=== PATIENT | male | born 1930 | race Caucasian/White ===

== ENCOUNTER 2017-05-10 16:13 | Inpatient (IN) ==
--- NOTE | 2017-05-10 16:51 | Emergency Department Note ---
Lower Extremity Injury HPI - General Chief Complaint: Extremity Injury, Lower Stated Complaint: L leg warmth and swelling Time Seen by Provider: 05/10/17 16:39 Source: patient Mode of arrival: ambulatory - History of Present Illness HPI Narrative: Artie comes in today with history of lower leg swelling that he has had since Thursday. He states the swelling is gradually gotten worse. Does take Coumadin for A. fib he is on long-term anticoagulation. Swelling gradually has gotten worse, he did also have some redness to his left lower leg. No fevers no chest pain, no change in his respiratory rate, he does have chronic A. 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 - Related Data Home Medications Medication Instructions Recorded Confirmed magnesium oxide 400 mg tablet 400 mg PO QDAY tab 02/20/16 05/10/17 multivitamin tablet 1 tab-cap PO QDAY 02/20/16 05/10/17 Custom Shoes 1 each TP DAILY 05/10/17 05/10/17 Previous Rx's Medication Instructions Recorded rosuvastatin 10 mg tablet 10 mg PO .COMPLEX #90 tab 08/14/16 furosemide 40 mg tablet 40 mg PO BID #60 tab 08/26/16 verapamil ER 120 mg 24 hr 120 mg PO QDAY #90 cap 09/16/16 capsule,extended release metolazone 2.5 mg tablet 2.5 mg PO QDAY PRN #90 tab 11/11/16 warfarin 5 mg tablet See Dose Instructions PO QDAY #100 04/23/17 tab Allergies Allergy/AdvReac Type Severity Reaction Status Date / Time Beta Blockers AdvReac Unknown Bradycardia Uncoded 04/30/17 13:05 (Beta-Adrenergic Blocking Agts) Review of Systems All systems ED: reviewed and negative except as stated. Constitutional: Reports: other (Also history of azar wire fence injury to left thigh when he was a child.). Denies: fever, chills ENT ED: Denies: ear pain, throat pain Cardiovascular: Reports: palpitations, dyspnea on exertion. Denies: chest pain Respiratory: Denies: cough Gastrointestinal: Denies: abdominal pain, nausea, vomiting Genitourinary: Denies: urgency, dysuria Psychiatric: Denies: depression Endocrine: Reports: fatigue Hematological/Lymphatic: Denies: easy bleeding Past Medical History - Past Medical History Source: old records reviewed Medical history: Reports: atrial fibrillation, CHF, coronary artery disease, valvular heart disease, other (History of vascular disease) Surgical history ED: Reports: orthopedic, other, vascular surgery Family history: Reports: no significant family history - Social History smoking status: Unknown if ever smoked Alcohol use: Reports: Rarely Physical Exam - General General appearance: alert, in no apparent distress - Head Head exam: atraumatic, normocephalic, normal inspection (saddle nose deformity) - Eye Eye exam: Present: normal appearance, PERRL, EOMI. Absent: conjunctival injection - ENT ENT exam: normal exam, normal oropharynx, mucous membranes moist, TM's normal bilaterally, normal external ear exam - Neck Neck exam: Present: normal inspection, full ROM, trachea midline. Absent: tenderness, meningismus, lymphadenopathy - Chest Chest inspection: Present: normal inspection, symmetric chest wall rise - Respiratory Respiratory exam: Present: normal lung sounds bilaterally - Cardiovascular Cardiovascular exam: Present: irregular rhythm, systolic murmur - Abdominal Exam Abdominal exam: Present: soft, normal bowel sounds. Absent: distention, tenderness, guarding - exam: Present: normal testicular lie. Absent: scrotal swelling - Extremities Exam Extremities exam: Present: normal inspection, full ROM, tenderness, pedal edema , calf tenderness, other (tenderness to the left calf and lef left lower extremity with erythema) - Back Exam Back exam: Present: normal inspection, full ROM. Absent: tenderness, CVA tenderness (R), CVA tenderness (L) - Neurological Exam Neurological exam: Present: alert, oriented X3 - Psychiatric Psychiatric exam: Present: normal affect, normal mood - Skin Skin exam: Present: warm, dry, intact, erythema Course Vital Signs Temperature 98.4 F 05/10/17 16:13 Pulse Rate 84 05/10/17 16:13 Respiratory Rate 16 05/10/17 16:13 Blood Pressure 105/68 05/10/17 16:13 Pulse Oximetry (%) 97 05/10/17 16:13 Temperature 98.4 F 05/10/17 16:13 Pulse Rate 83 05/10/17 18:16 Respiratory Rate 23 H 05/10/17 18:16 Blood Pressure 96/64 05/10/17 18:16 Pulse Oximetry (%) 93 05/10/17 18:16 Extremity Injury, Lower - MDM Narrative Medical decision making narrative: Laboratory studies showing white blood cell count elevated at 17,000. At this point I think he should be admitted, discussed with Dr. Colindres and we will start him on antibiotics. - Lab Data Result diagrams: 05/10/17 16:42 Lab Results 05/10/17 05/10/17 Range/Units 16:42 16:43 WBC 17.7 H (4.5-11.0) K/mcL RBC 4.11 L (4.50-5.90) M/mcL Hgb 13.5 (13.5-16.5) g/dL Hct 40.0 L (41.0-55.0) % MCV 97.3 (80.0-100.0) fL MCH 32.9 (26.0-34.0) pg MCHC 33.8 (31.0-36.0) g/dL RDW 14.1 (11.5-14.5) % Plt Count 226 (140-440) K/mcL MPV 8.1 (7.4-10.4) fL Band Neutrophils % Not Reportable PT 22.4 H (11.9-14.5) sec INR 1.9 H (0.9-1.1) Disposition Clinical Impression: Cellulitis Disposition: Xfer As Inpt ([facility]) Condition: Fair Referrals: Anderson Louise MD [Primary Care Provider] -
[2017-05-10 18:30] LABS: Mean Cell Volume 97.3 fL (80.0-100.0); Mean Corpuscular HGB Conc 33.8 g/dL (31.0-36.0); Mean Corpuscular Hemoglobin 32.9 pg (26.0-34.0); Platelet Count 226 K/mcL (140-440); RBC 4.11 M/mcL (4.50-5.90); Red Cell Distribution Width 14.1 % (11.5-14.5)
[2017-05-10] MEDS ORDERED: cefTRIAXone 2 GM in DEXTROSE 5% IN WATER 50 ML IV ONE (18:37)
[2017-05-10] MEDS ORDERED: LACTATED RINGERS 1,000 ML IV SCH (18:45)
[2017-05-10 19:00] LABS: Band Neutrophils % 9 % (0-10); Lymphocytes % 7 % (15-49); Monocytes % (Manual) 8 % (1-12); Platelet Estimate NORMAL (NORMAL); RBC Morphology NORMAL (NORMAL); Segmented Neutrophils % 76 % (38-78)
[2017-05-10] MEDS ORDERED: LACTATED RINGERS 500 ML IV SCH (19:09)
--- NOTE | 2017-05-10 19:10 | Ultrasound Report ---
CLINICAL INFORMATION: Left leg pain and swelling TECHNIQUE: Grayscale and color flow Doppler spectral imaging COMPARISON: None. FINDINGS: Negative examination for deep venous thrombosis. Negative left common femoral vein, superficial femoral vein, popliteal vein. Negative calf veins. Greater and lesser saphenous veins are negative IMPRESSION: Negative left lower extremity deep venous ultrasound. Interpreted and Authenticated by: Hilton Holder 05/10/17
--- NOTE | 2017-05-10 19:31 | Internal Med History&Physical ---
Medical - H&P: HPI Patient information: Note initiated : 05/10/17 at 7:21 pm Patient: Artie Sterling Jr 87 y/o M admitted on for L leg warmth and swelling. History of present illness: Mr. 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 Treatment left him with significant scarring. He also has known peripheral vascular disease, as well as congestive heart failure. He presents today complaining of a 2 day history of worsening swelling and redness of his left lower leg. He is having some pain, mainly with weightbearing. He denies any known injuries or breaks in his skin. He denies fever or chills. ER evaluation showed marked leukocytosis, mild hypotension, tachycardia, tachypnea. Patient is now admitted for further workup and treatment. Otherwise, he denies headaches or dizziness, new eye or ear symptoms, sore throat or cough, chest pain or palpitations, shortness of breath or wheezing, abdominal pain, nausea or vomiting, diarrhea or constipation, dysuria, swollen glands. Medical History Anticoagulant long-term use (Chronic) Aortic regurgitation (Chronic) mild Arthritis of multiple sites (Chronic) Atelectasis (Chronic) (02/25/2015-Lang) Atrial fibrillation (Chronic) Back pain (Chronic) Bunion (Chronic 01/11/15) Callus (Chronic 07/29/13) 07/2013 Bilateral Cardiac Enlargement Cardiomyopathy (Chronic)/ CHF EF 30% - ischemic, systolic/diastolic NYHA class III Ischemic Cerebrovascular accident (Chronic) Cervical lymphadenopathy (Chronic) Cholelithiasis (Chronic) Coronary artery disease (Chronic) Degenerative joint disease (Chronic) Diastolic heart failure (Chronic) Erectile dysfunction (Chronic) Hyperlipemia (Chronic) Hypertension, essential (Chronic) Hyponatremia (Chronic) Hypotension (Chronic 08/16/13) Leukocytosis (Chronic) Mitral regurgitation (Chronic) mild Myalgia (Chronic) Neuropathy (Chronic 08/11/13) Onychomycosis (Chronic) Osteoarthritis (Chronic) Peripheral vascular disease (Chronic) Seizure (Chronic) Prophylaxis Sleep apnea, obstructive (Chronic) Anasarca (Resolved 07/05/13) Generalized, secondary to fluid retention from underlying congestive heart failure Bacteremia (Resolved) 07/2013 Gram-positive Bilateral pulmonary infiltrates on chest x-ray (Resolved) Closed rib fracture (Resolved) Left 4, 5 and sixth ribs (02/23/2015-Yourzek) left 4th, 5th and 6th ribs Confusion (Resolved 06/28/13) Dehydration (Resolved 08/10/13) Secondary to volume depletion Fracture of facial bone, closed (Resolved) Left cheek Hemothorax (Resolved) (02/25/2015-Lang) left Pleural effusion (Resolved) (02/25/2015-Lang) Pneumonia (Resolved 06/28/13) Aspiration Sepsis (Resolved 06/28/13) Shoulder pain (Resolved) Tachycardia (Resolved) Ventricular. 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 History of thoracentesis (Resolved 03/14/15) Medications: Warfarin 5 mg as directed Verapamil ER 120 mg daily Crestor 10 mg daily Multivitamin 1 daily Metolazone 2.5 mg daily as needed Magnesium oxide 400 mg daily Lasix 40 mg p.o. twice daily Allergies: Beta-blockers have caused bradycardia. Family History His father may have at age 56 with pernicious anemia. He thinks his mother may have had heart failure. He says his siblings are alive and well Social History marital status: , and lives with his . education level: college; occupational status: retired occupation: Computer programming other: 4 children smoking status: Never smoker, does not drink, no drugs. He says he generally walks an hour a day, and generally does not wear a shirt, so is quite tanned. Medical - H&P: Meds Home Medications Medication Instructions Recorded Confirmed Type magnesium oxide 400 mg tablet 400 mg PO QDAY tab 02/20/16 05/10/17 History multivitamin tablet 1 tab-cap PO QDAY 02/20/16 05/10/17 History rosuvastatin 10 mg tablet 10 mg PO .COMPLEX #90 tab 08/14/16 05/10/17 Rx furosemide 40 mg tablet 40 mg PO BID #60 tab 08/26/16 05/10/17 Rx verapamil ER 120 mg 24 hr 120 mg PO QDAY #90 cap 09/16/16 05/10/17 Rx capsule,extended release metolazone 2.5 mg tablet 2.5 mg PO QDAY PRN #90 tab 11/11/16 05/10/17 Rx warfarin 5 mg tablet See Dose Instructions PO QDAY #100 04/23/17 05/10/17 Rx tab Custom Shoes 1 each TP DAILY 05/10/17 05/10/17 History Allergies Allergy/AdvReac Type Severity Reaction Status Date / Time No Known Drug Allergies Allergy Unverified 05/10/17 20:17 Medical - H&P: Exam - Constitutional Vitals: Temp Pulse Resp BP Pulse Ox 98.4 F 83 23 H 96/64 93 05/10/17 16:13 05/10/17 18:16 05/10/17 18:16 05/10/17 18:16 05/10/17 18:16 On exam, he is a well-developed well-nourished elderly man, who is quite hard of hearing. Head: Normocephalic, atraumatic. Eyes: Pupils are fairly pinpoint, EOMI, anicteric. TMs and canals are clear. Pharynx: Is clear. He has a full upper and partial lower plate. Mucosa looks normal. Neck: Is supple, without lymphadenopathy, JVD, thyromegaly, bruits. Cardiac exam: Shows regular rate and rhythm, with normal S1 and S2. There are no obvious murmurs, rubs, gallops. Lungs: Are clear to auscultation, without rales, rhonchi, wheezing. Abdomen: Is soft and nontender with no obvious masses. There is scarring of the left groin, but I do not feel any obvious lymphadenopathy. Extremities: Left lower extremity is markedly swollen to about the level of the knee. Redness extends from his foot to just below the knee. There is 3-4+ pitting edema, with some mild tenderness. Pulses were only easily detectable with ultrasound. Right lower extremity appears fairly normal with intact pulses. Neurologic: The patient is alert and oriented, but seems somewhat forgetful about his medical history and medications. Exam is otherwise grossly nonfocal, although he has a bit of a jaw tremor. Skin exam: Shows that he is markedly tanned, without obvious other abnormal skin lesions. Medical - H&P: Reslt - Labs CBC & Chem 7: 05/10/17 16:42 05/10/17 20:09 Labs: Short CBC 05/10/17 Range/Units 16:42 WBC 17.7 H (4.5-11.0) K/mcL Hgb 13.5 (13.5-16.5) g/dL Hct 40.0 L (41.0-55.0) % Plt Count 226 (140-440) K/mcL Pro time is 22, INR 1.9 CRP is elevated at April 30: Chest x-ray showed mild cardiomegaly, and probable COPD. Minor bibasilar scarring versus atelectasis. Mild old compression fractures of the mid lower thoracic spine. Chemistries: Pro-calcitonin: Lactic acid: Medical - H&P: A/P (1) Atrial fibrillation Current visit: Yes Status: Chronic (2) Cellulitis Current visit: Yes Status: Acute (3) Congestive heart failure Problem details: Mild Current visit: No Status: Chronic - Narrative A/P Narrative: #1. Infectious disease. SIRS syndrome. -Patient presents with signs and symptoms of left leg cellulitis, associated with leukocytosis, hypotension, tachypnea. Admit for IV antibiotics, IV fluids, telemetry. Blood cultures pending. -lactic acid and pro-calcitonin ordered. 2. Cardiac. -Chronic atrial fibrillation. Rate controlled. Continue verapamil. Monitor on telemetry. #3. Pulmonary. -History of obstructive sleep apnea. Continue CPAP. -Chronic anticoagulation therapy. INR is therapeutic. Coumadin management per pharmacy. -Hypertension. Patient presented with hypotension. Monitor. We may need to hold the verapamil. 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 Continue warfarin. Continue to monitor. -History of coronary artery disease. Continue warfarin, verapamil, Crestor. 3. CODE STATUS: Patient thinks she would like to be a full code, but would not like long-term life support. He says his would act as his POA. 4. DVT prophylaxis: Continue warfarin. 5. Health maintenance. -Tdap and Pneumovax appear up-to-date. 6. History of peripheral vascular disease. Continue warfarin. #7. History of lymphoma, with treatment of the left groin. He is at risk for lymphedema as well. Ultrasound of the lower extremity did not show DVT. This visit took approximately 55 minutes, to review patient's old records, reviewed case with the ER MD, interview and examine him, and write orders.
[2017-05-10] MEDS ORDERED: DOCUSATE SODIUM 100 MG CAPSULE PO PRN (19:41)
[2017-05-10] MEDS ORDERED: NALOXONE HCL 0.4 MG/ML VIAL IV PRN (19:41)
[2017-05-10] MEDS ORDERED: MAGNESIUM HYDROXIDE 30 ML ORAL.SUSP PO PRN (19:41)
[2017-05-10] MEDS ORDERED: ONDANSETRON 4 MG/2 ML VIAL IV PRN (19:41)
[2017-05-10] MEDS ORDERED: ACETAMINOPHEN 325 MG TABLET PO PRN (19:41)
[2017-05-10] MEDS: 0.45 % SODIUM CHLORIDE 1,000 ML IV SCH (19:45)
[2017-05-10] MEDS: ceFAZolin 1 GM VIAL IV SCH (20:50)
[2017-05-10 22:34] LABS: ALT/SGPT 14 U/l (0-40); Albumin 3.5 gm/dL (3.2-5.2); Albumin/Globulin Ratio 1.2 (1.0-2.3); Alkaline Phosphatase 98 U/L (39-117); Bilirubin,Direct 0.3 mg/dL (0.0-0.3); Blood Urea Nitrogen 33 mg/dl (8-23); Gamma Glutamyl Transpeptidase 17 U/L (8-61); Magnesium 2.3 mg/dL (1.6-2.5); Uric Acid 7.7 mg/dL (2.5-8.0)
[2017-05-11] MEDS: ceFAZolin 1 GM VIAL IV SCH ×3 (03:56→19:39)
[2017-05-11 05:10] LABS: Basophils # (Auto) 0 K/mcL (0.0-0.3); Basophils % (Auto) 0.2 % (0.0-2.0); Eosinophils # (Auto) 0.1 K/mcL (0.0-0.7); Eosinophils % (Auto) 0.5 % (0.0-7.0); Granulocytes % (Auto) 86.3 % (38.0-78.0); Lymphocytes # (Auto) 1.2 K/mcL (1.5-4.8); Lymphocytes % (Auto) 8.2 % (15.5-49.0); Mean Cell Volume 97.4 fL (80.0-100.0); Mean Corpuscular HGB Conc 33.8 g/dL (31.0-36.0); Monocytes # (Auto) 0.7 K/mcL (0.1-0.9); Monocytes % (Auto) 4.8 % (1.0-12.0); Platelet Count 205 K/mcL (140-440); RBC 3.77 M/mcL (4.50-5.90); Red Cell Distribution Width 14.5 % (11.5-14.5)
[2017-05-11 05:52] LABS: ALT/SGPT 12 U/l (0-40); Albumin 3.4 gm/dL (3.2-5.2); Albumin/Globulin Ratio 1.5 (1.0-2.3); Alkaline Phosphatase 89 U/L (39-117); Bilirubin,Direct 0.3 mg/dL (0.0-0.3); Blood Urea Nitrogen 29 mg/dl (8-23); Gamma Glutamyl Transpeptidase 15 U/L (8-61); Magnesium 2.2 mg/dL (1.6-2.5); Uric Acid 7.3 mg/dL (2.5-8.0)
[2017-05-11] MEDS: 0.45 % SODIUM CHLORIDE 1,000 ML IV SCH ×4 (07:33→21:43)
--- NOTE | 2017-05-11 10:33 | Internal Med Progress Note ---
Medical - PN: Subj Patient information: Note initiated : 05/11/17 at 10:33 am Patient: Artie Sterling Jr 87 y/o M admitted on 05/10/17 for L leg cellulitis. Interval history: May 10, 2017: History of present illness: Mr. 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 Treatment left him with significant scarring. He also has known peripheral vascular disease, as well as congestive heart failure. He presents today complaining of a 2 day history of worsening swelling and redness of his left lower leg. He is having some pain, mainly with weightbearing. He denies any known injuries or breaks in his skin. He denies fever or chills. ER evaluation showed marked leukocytosis, mild hypotension, tachycardia, tachypnea. Patient is now admitted for further workup and treatment. Otherwise, he denies headaches or dizziness, new eye or ear symptoms, sore throat or cough, chest pain or palpitations, shortness of breath or wheezing, abdominal pain, nausea or vomiting, diarrhea or constipation, dysuria, swollen glands. May 11: Today, the patient says he is feeling okay. He is having fairly minimal pain in his left lower extremity. He has been up walking today, and says it is not terribly uncomfortable. He denies fever or chills, headaches or dizziness, chest pain or palpitations, shortness of breath, abdominal pain, nausea or vomiting, diarrhea or constipation, or dysuria. Our wound care nurse saw him today, and is concerned that his overlapping toes may be rubbing and possibly causing an entry point for bacteria. He says he just saw podiatry about a month ago and they gave him a pad to wear between his toes, which she tries to wear every day. - Constitutional Vitals: Vital Signs Temp Pulse Resp BP Pulse Ox 98.7 F 66 16 111/61 97 05/11/17 07:30 05/11/17 07:30 05/11/17 07:30 05/11/17 07:30 05/11/17 07:30 Period Temp Pulse Resp BP Sys/Howe Pulse Ox Last 24 Hr 97.3 F-98.9 F 48-77 16-28 100-111/61-70 94-97 Intake and Output 0705/11/17 05/11/17 21:59 05:59 13:59 Intake Total 425 / 425 50 / 50 1365 / 1365 Output Total 150 / 150 380 / 380 Balance 425 / 425 -100 / -100 985 / 985 Weight 205 lb 12.8 oz Temperature at 1157 was 99.8 Intake & Output: Intake & Output 05/10/17 05/11/17 05/11/17 21:59 05:59 13:59 Intake Total 425 / 425 50 / 50 1365 / 1365 Output Total 150 / 150 380 / 380 Balance 425 / 425 -100 / -100 985 / 985 Weight 205 lb 12.8 oz Intake: IV 425 / 425 885 / 885 Sodium Chloride 0.45% 1, 885 / 885 000 ml @ 75 mls/hr IV . [id number] SAV Rx#:[id number] Lactated Ringers 500 ml @ 375 / 375 500 mls/hr IV .Q1H SAV Rx#:[id number] Rocephin 2 gm In Dextrose 50 / 50 5% in Water 50 ml @ 100 mls/hr IV ONCE ONE Rx#: [id number] Oral 50 / 50 480 / 480 Output: Void Amount 150 / 150 380 / 380 Other: Meal Breakfast Percent of Meal Consumed 100% # Voids 1 # Bowel Movements 1 1 On exam, he is in no acute distress. Neck is supple without obvious lymphadenopathy or JVD. Cardiac exam shows regular rate and rhythm. Lungs are clear to auscultation. Abdomen is soft and nontender. Right lower extremity appears fairly normal. Left lower extremity has about 3+ edema to above the left knee. Erythema is somewhat faint and fairly diffuse, and blends somewhat into his dark sweeney. He does have tenderness to palpation, and moderate increased warmth as well. Neurologic exam is grossly nonfocal. Skin exam: Shows that he is markedly tanned and freckled throughout. Medical - PN: Obj Da - Labs CBC & Chem 7: 05/11/17 03:38 05/11/17 03:38 Labs: Abnormal Lab Results 05/11/17 05/11/17 05/11/17 03:38 03:38 03:38 WBC 14.9 H RBC 3.77 L Hgb 12.4 L Hct 36.7 L Gran % 86.3 H Lymph % (Auto) 8.2 L Gran # 12.9 H Lymph # (Auto) 1.2 L PT 22.3 H INR 1.9 H Sodium 129 L Chloride BUN 29 H Creatinine Phosphorus 2.6 L Total Bilirubin 1.4 H Lactate Dehydrogenase Total Protein 5.7 L 05/10/17 20:09 WBC RBC Hgb Hct Gran % Lymph % (Auto) Gran # Lymph # (Auto) PT INR Sodium 130 L Chloride 93 L BUN 33 H Creatinine 1.3 H Phosphorus Total Bilirubin 1.8 H Lactate Dehydrogenase 307 H Total Protein May 10: Lactic acid is normal at 1.5 May 9: Pro time is 22, INR 1.9 CRP is elevated at 23 April 29: Chest x-ray showed mild cardiomegaly, and probable COPD. Minor bibasilar scarring versus atelectasis. Mild old compression fractures of the mid lower thoracic spine. Chemistries: Sodium 130, chloride 93, potassium 4.2, BUN 33, creatinine 1.3 Total bilirubin 1.8 LDH 307 Pro-calcitonin: Elevated at 2.59 Lactic acid: Normal at 2.0 CBC showed white blood cell count of 17,700. Left lower extremity venous Doppler: Negative for DVT. Meds: Medications Acetaminophen (Tylenol) 650 mg PO Q6HP PRN PRN Reason: PAIN/FEVER > 101 Cefazolin Sodium (Ancef) 1 gm IV Q8H [facility] Last Admin: 05/11/17 03:56 Dose: 1 gm Docusate Sodium (Colace) 100 mg PO BID PRN PRN Reason: Constipation Sodium Chloride (Sodium Chloride 0.45%) 1,000 mls @ 75 mls/hr IV .[id number] [facility] Last Admin: 05/11/17 10:01 Dose: Not Given Magnesium Hydroxide (Milk Of Magnesia) 30 ml PO DAILYP PRN PRN Reason: Constipation Morphine Sulfate (Morphine) 2 mg IV Q2HP PRN PRN Reason: Pain Naloxone HCl (Narcan) 0.1 mg IV Q2MIN PRN PRN Reason: Opiate Reversal Ondansetron HCl (Zofran) 4 mg IV Q4HP PRN PRN Reason: Nausea And Vomiting Pneumococcal Polyvalent Vaccine (Pneumovax 23) 0.5 ml IM .ONCE ONE Stop: 05/12/17 10:01 Warfarin Sodium (Coumadin Per Pharmacy) 1 order PO [facility] [place]far[place] Sodium (Coumadin) 5 mg PO ONCE@1400 ONE Stop: 05/11/17 14:01 Medical - PN: A/P - Time Spent With Patient Total time spent is greater than 50% in coordination of care (as documented) at patient's floor/unit and/or counseling patient: 25 - 35 minutes (1) Atrial fibrillation Status: Chronic Current Visit: Yes (2) Cellulitis Status: Acute Current Visit: Yes (3) Congestive heart failure Problem details: Mild Status: Chronic Current Visit: No - Narrative A/P Narrative: #1. Infectious disease. SIRS syndrome. -Patient presents with signs and symptoms of left leg cellulitis, associated with leukocytosis, hypotension, tachypnea. Admitted for IV antibiotics, IV fluids, telemetry. Blood cultures pending. -lactic acid was normal, and pro-calcitonin was elevated. -This case was also reviewed with Dr. French of wound care today. He will see him tomorrow. 2. Cardiac. -Chronic atrial fibrillation. Rate controlled. Continue verapamil. -Okay to discontinue telemetry. #3. Pulmonary. -History of obstructive sleep apnea. Continue CPAP. -Chronic anticoagulation therapy. INR is just a little sub-therapeutic. Coumadin management per pharmacy. -Hypertension. Patient presented with hypotension. Verapamil has been on hold. We can probably restart at this time. 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 Continue warfarin. Continue to monitor. -History of coronary artery disease. Continue warfarin, verapamil, Crestor. 3. CODE STATUS: Patient thinks she would like to be a full code, but would not like long-term life support. He says his would act as his POA. 4. DVT prophylaxis: Continue warfarin. 5. Health maintenance. -Tdap and Pneumovax appear up-to-date. 6. History of peripheral vascular disease. Continue warfarin. #7. History of lymphoma, with treatment of the left groin. He is at risk for lymphedema as well. Ultrasound of the lower extremity did not show DVT. Medical - PN: Qual - VTE Deep Vein Thrombosis/Pulmonary Embolism Present on Admission: No
[2017-05-11] MEDS ORDERED: WARFARIN 5 MG TABLET PO ONE ×2 (14:00→14:05)
[2017-05-11] MEDS ORDERED: MAGNESIUM HYDROXIDE 30 ML ORAL.SUSP PO PRN (14:05)
[2017-05-11] MEDS ORDERED: ACETAMINOPHEN 325 MG TABLET PO PRN (14:05)
[2017-05-11] MEDS ORDERED: MAGNESIUM SULFATE 2 GM/50 ML BAG IV ONE (14:05)
[2017-05-11] MEDS ORDERED: ONDANSETRON 4 MG/2 ML VIAL IV PRN (14:05)
[2017-05-11] MEDS ORDERED: NALOXONE HCL 0.4 MG/ML VIAL IV PRN (14:05)
[2017-05-11] MEDS ORDERED: DOCUSATE SODIUM 100 MG CAPSULE PO PRN (14:05)
[2017-05-11] MEDS ORDERED: WARFARIN 5 MG TABLET ONE (14:25)
[2017-05-11] MEDS: FUROSEMIDE 40 MG TABLET PO SCH (21:38)
[2017-05-12] MEDS: ceFAZolin 1 GM VIAL IV SCH (04:40)
[2017-05-12] MEDS: 0.45 % SODIUM CHLORIDE 1,000 ML IV SCH (04:40)
[2017-05-12 05:32] LABS: Basophils # (Auto) 0 K/mcL (0.0-0.3); Basophils % (Auto) 0.1 % (0.0-2.0); Eosinophils # (Auto) 0.1 K/mcL (0.0-0.7); Eosinophils % (Auto) 0.4 % (0.0-7.0); Granulocytes % (Auto) 89.2 % (38.0-78.0); Lymphocytes % (Auto) 6.8 % (15.5-49.0); Mean Cell Volume 97.9 fL (80.0-100.0); Mean Corpuscular Hemoglobin 33.3 pg (26.0-34.0); Monocytes # (Auto) 0.5 K/mcL (0.1-0.9); Monocytes % (Auto) 3.5 % (1.0-12.0); Platelet Count 231 K/mcL (140-440); RBC 4.06 M/mcL (4.50-5.90); Red Cell Distribution Width 14.3 % (11.5-14.5)
[2017-05-12 05:59] LABS: ALT/SGPT 22 U/l (0-40); Albumin 3.3 gm/dL (3.2-5.2); Albumin/Globulin Ratio 1.1 (1.0-2.3); Alkaline Phosphatase 161 U/L (39-117); Bilirubin,Direct 0.3 mg/dL (0.0-0.3); Blood Urea Nitrogen 22 mg/dl (8-23); Gamma Glutamyl Transpeptidase 26 U/L (8-61); Magnesium 2.3 mg/dL (1.6-2.5); Uric Acid 6.4 mg/dL (2.5-8.0)
[2017-05-12] MEDS ORDERED: VANCOMYCIN PER PHARMACY IV SCH (07:17)
[2017-05-12] MEDS: PIPERACILLIN SODIUM/TAZOBACTAM 3.375 GM in DEXTROSE 5% IN WATER 50 ML IV SCH ×4 (08:04→23:47)
[2017-05-12] MEDS: FUROSEMIDE 40 MG TABLET PO SCH ×2 (08:34→21:17)
[2017-05-12] MEDS: VERAPAMIL 120 MG TAB.XL.24H PO SCH (08:34)
[2017-05-12] MEDS: MAGNESIUM OXIDE 400 MG TABLET PO SCH (08:34)
[2017-05-12] MEDS: MULTIVIT,THER IRON,CA,FA & MIN 1 TABLET PO SCH (08:34)
[2017-05-12] MEDS: VANCOMYCIN 1,500 MG in 0.9 % SODIUM CHLORIDE 500 ML IV SCH ×2 (09:30→21:16)
[2017-05-12] MEDS ORDERED: PNEUMOCOCCAL 23-VAL P-SAC VAC 0.5 ML VIAL IM ONE (10:00)
--- NOTE | 2017-05-12 11:27 | Internal Med Progress Note ---
Medical - PN: Subj Patient information: Note initiated : 05/12/17 at 11:27 am Patient: Artie Sterling Jr 87 y/o M admitted on 05/10/17 for L Leg Warmth and Swelling/Cellulitis. Interval history: May 10, 2017: History of present illness: Mr. 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 Treatment left him with significant scarring. He also has known peripheral vascular disease, as well as congestive heart failure. He presents today complaining of a 2 day history of worsening swelling and redness of his left lower leg. He is having some pain, mainly with weightbearing. He denies any known injuries or breaks in his skin. He denies fever or chills. ER evaluation showed marked leukocytosis, mild hypotension, tachycardia, tachypnea. Patient is now admitted for further workup and treatment. Otherwise, he denies headaches or dizziness, new eye or ear symptoms, sore throat or cough, chest pain or palpitations, shortness of breath or wheezing, abdominal pain, nausea or vomiting, diarrhea or constipation, dysuria, swollen glands. May 11: Today, the patient says he is feeling okay. He is having fairly minimal pain in his left lower extremity. He has been up walking today, and says it is not terribly uncomfortable. He denies fever or chills, headaches or dizziness, chest pain or palpitations, shortness of breath, abdominal pain, nausea or vomiting, diarrhea or constipation, or dysuria. Our wound care nurse saw him today, and is concerned that his overlapping toes may be rubbing and possibly causing an entry point for bacteria. He says he just saw podiatry about a month ago and they gave him a pad to wear between his toes, which she tries to wear every day. May 12: Today, the patient continues to say that he does not feel very poorly. He denies significant pain in his leg, but nursing is noticed increasing swelling of the left lower extremity up to the thigh, as well as a rash on the thigh. He did have a low-grade fever last night, of 99.9. White blood cell count is a bit higher today, at 15,000. Consult was obtained with Dr. French of wound care, but he is not so concerned. He suggested continue with IV antibiotics and leg elevation. Because of the patient's history of a left groin lymphoma before, CT scan was ordered to assess for any signs of mass or obstruction at the groin level. Otherwise, the patient denies fever chills, chest pain or palpitations, shortness of breath, abdominal pain, nausea or vomiting, diarrhea or constipation, dysuria. -He continues on Coumadin, and denies any signs of bleeding. -He does have chronic A. fib, but denies palpitations or other cardiac symptoms. - Constitutional Vitals: Vital Signs Temp Pulse Resp BP Pulse Ox 98.9 F 76 20 105/70 93 05/12/17 07:05 05/12/17 03:17 05/12/17 07:05 05/12/17 07:05 05/12/17 07:23 Period Temp Pulse Resp BP Sys/Howe Pulse Ox Last 24 Hr 97.4 F-99.9 F 65-84 18-24 105-143/54-75 93-96 Intake and Output 05/11/17 05/12/17 05/12/17 21:59 05:59 13:59 Intake Total 400 / 400 200 / 200 170 / 170 Output Total 500 / 500 151 / 151 Balance -100 / -100 49 / 49 170 / 170 Weight 206 lb Intake & Output: Intake & Output 05/11/17 05/12/17 05/12/17 21:59 05:59 13:59 Intake Total 400 / 400 200 / 200 170 / 170 Output Total 500 / 500 151 / 151 Balance -100 / -100 49 / 49 170 / 170 Weight 206 lb Intake: IV 50 / 50 Zosyn 3.375 gm In 50 / 50 Dextrose 5% in Water 50 ml @ 100 mls/hr IV Q6H [facility] Rx#:[id number] Oral 400 / 400 200 / 200 120 / 120 Output: Void Amount 500 / 500 150 / 150 # of times incontinent of 1 / 1 urine Other: Meal Dinner Breakfast Percent of Meal Consumed 100% 100% Feeding Ability Independent Independent # Voids 1 # Bowel Movements 1 1 On exam, he is in no acute distress. Neck is supple without obvious lymphadenopathy or JVD. Cardiac exam shows regular rate and rhythm. Lungs are clear to auscultation. Abdomen is soft and nontender. Right lower extremity appears fairly normal. Left lower extremity has about 3+ edema to above the left knee, and the leg appears at least slightly swollen all the way to the left groin today.. Erythema of the lower leg is somewhat faint and fairly diffuse, and blends somewhat into his dark sweeney. He does have tenderness to palpation, and moderate increased warmth as well. There is also a slightly raised, irregular red rash noticed on both the inner and outer thigh areas. This has a different appearance than the lower leg, and could possibly be an allergic reaction. Neurologic exam is grossly nonfocal. Skin exam: Continues to show that he is markedly tanned and freckled throughout. Medical - PN: Obj Da - Labs CBC & Chem 7: 05/12/17 04:34 05/12/17 04:34 Labs: Abnormal Lab Results 05/12/17 05/12/17 05/12/17 04:34 04:34 04:34 WBC 15.1 H RBC 4.06 L Hgb Hct 39.8 L Gran % 89.2 H Lymph % (Auto) 6.8 L Gran # 13.5 H Lymph # (Auto) 1.0 L PT 25.5 H INR 2.2 H Sodium Chloride BUN Creatinine Glucose 108 H Phosphorus Total Bilirubin 1.2 H AST 63 H Alkaline Phosphatase 161 H Lactate Dehydrogenase 324 H Total Protein 05/11/17 05/11/17 05/11/17 03:38 03:38 03:38 WBC 14.9 H RBC 3.77 L Hgb 12.4 L Hct 36.7 L Gran % 86.3 H Lymph % (Auto) 8.2 L Gran # 12.9 H Lymph # (Auto) 1.2 L PT 22.3 H INR 1.9 H Sodium 129 L Chloride BUN 29 H Creatinine Glucose Phosphorus 2.6 L Total Bilirubin 1.4 H AST Alkaline Phosphatase Lactate Dehydrogenase Total Protein 5.7 L 05/10/17 20:09 WBC RBC Hgb Hct Gran % Lymph % (Auto) Gran # Lymph # (Auto) PT INR Sodium 130 L Chloride 93 L BUN 33 H Creatinine 1.3 H Glucose Phosphorus Total Bilirubin 1.8 H AST Alkaline Phosphatase Lactate Dehydrogenase 307 H Total Protein May 12: Pelvic CT: Localized inflammatory reaction is seen in the left inguinal region as well as the left lower quadrant near the inguinal canal. Small fat density possibly consistent with fat necrosis. Diverticulitis is possible. Mild calcification of common iliac arteries. Femoral arteries are densely calcified. May 11: Lactic acid is normal at 1.5 Blood cultures are negative so far. May 10: Pro time is 22, INR 1.9 CRP is elevated at April 30: Chest x-ray showed mild cardiomegaly, and probable COPD. Minor bibasilar scarring versus atelectasis. Mild old compression fractures of the mid lower thoracic spine. Chemistries: Sodium 130, chloride 93, potassium 4.2, BUN 33, creatinine 1.3 Total bilirubin 1.8 LDH 307 Pro-calcitonin: Elevated at 2.59 Lactic acid: Normal at 2.0 CBC showed white blood cell count of 17,700. Left lower extremity venous Doppler: Negative for DVT. Meds: Medications Acetaminophen (Tylenol) 650 mg PO Q6HP PRN PRN Reason: PAIN/FEVER > 101 Atorvastatin Calcium (Lipitor) 20 mg PO HS [facility] Docusate Sodium (Colace) 100 mg PO BID PRN PRN Reason: Constipation Furosemide (Lasix) 40 mg PO BID [facility] Last Admin: 05/12/17 08:34 Dose: 40 mg Piperacillin Sod/Tazobactam (Sod 3.375 gm/ Dextrose) 50 mls @ 100 mls/hr IV Q6H [facility] Last Infusion: 05/12/17 08:35 Dose: Infused Vancomycin HCl 1,500 mg/ (Sodium Chloride) 500 mls @ 333.3 mls/hr IV Q12H [facility] Last Admin: 05/12/17 09:30 Dose: 333.3 mls/hr Iron Carb/Multivit/Williams/Folic Acid (Multivitamin W/Minerals) 1 tab PO DAILY [facility] Last Admin: 05/12/17 08:34 Dose: 1 tab Magnesium Hydroxide (Milk Of Magnesia) 30 ml PO DAILYP PRN PRN Reason: Constipation Magnesium Oxide (Magnesium Oxide) 400 mg PO QDAY [facility] Last Admin: 05/12/17 08:34 Dose: 400 mg Morphine Sulfate (Morphine) 2 mg IV Q2HP PRN PRN Reason: Pain Naloxone HCl (Narcan) 0.1 mg IV Q2MIN PRN PRN Reason: Opiate Reversal Ondansetron HCl (Zofran) 4 mg IV Q4HP PRN PRN Reason: Nausea And Vomiting Vancomycin HCl (Vancomycin Per Pharmacy) 1 order IV UD [facility] Verapamil HCl (Calan Sr) 120 mg PO DAILY [facility] Last Admin: 05/12/17 08:34 Dose: 120 mg Warfarin Sodium (Coumadin Per Pharmacy) 1 order PO UD SAV Warfarin Sodium (Coumadin) 2.5 mg PO ONCE@1400 ONE Stop: 05/12/17 14:01 Medical - PN: A/P - Time Spent With Patient Total time spent is greater than 50% in coordination of care (as documented) at patient's floor/unit and/or counseling patient: Greater than 35 minutes (1) Atrial fibrillation Status: Chronic Current Visit: Yes (2) Cellulitis Status: Acute Current Visit: Yes (3) Congestive heart failure Problem details: Mild Status: Chronic Current Visit: No - Narrative A/P Narrative: #1. Infectious disease. SIRS syndrome. -Patient presents with signs and symptoms of left leg cellulitis, associated with leukocytosis, hypotension, tachypnea. Vital signs are now stable. However, white blood cell count remains elevated, and his left lower extremity appears overall more swollen than before. Additionally he has a new rash on his left thigh. He was examined a second time today, with Dr. French of wound care. CT scan of the left groin area was ordered, and does show some inflammatory changes. I am waiting for Dr. French to give me his opinion about that. -Due to lack of improvement, I am changing the Ancef over to vancomycin plus Zosyn.. Continue leg elevation. -Continue home dose of Lasix, to perhaps help with swelling. IV fluids have been discontinued. -Add Pepcid and loratadine for possible allergic rash on his thigh. Blood cultures pending. -lactic acid was normal, and pro-calcitonin was elevated. 2. Cardiac. -Chronic atrial fibrillation. Rate controlled. Continue verapamil. -Chronic anticoagulation therapy. INR is therapeutic. Coumadin management per pharmacy. -Hypertension. Patient presented with hypotension. Verapamil has been on hold. We can probably restart at this time. 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 Continue warfarin. Continue to monitor. -History of coronary artery disease. Continue warfarin, verapamil, Crestor. 3. CODE STATUS: Patient thinks she would like to be a full code, but would not like long-term life support. He says his would act as his POA. 4. DVT prophylaxis: Continue warfarin. 5. Health maintenance. -Tdap and Pneumovax appear up-to-date. 6. History of peripheral vascular disease. Continue warfarin. #7. History of lymphoma, with treatment of the left groin. He is at risk for lymphedema as well. Ultrasound of the lower extremity did not show DVT. #8. Pulmonary. -History of obstructive sleep apnea. Continue CPAP. #9. GI. AST and alkaline phosphatase are bit elevated today. Continue to monitor. Approximately 35 minutes has been spent so far today, reviewing test results, interviewing and examining the patient twice, reviewing his care with Dr. French, as well as with our team, ordering more tests, and writing orders. Medical - PN: Qual - VTE Deep Vein Thrombosis/Pulmonary Embolism Present on Admission: No
[2017-05-12] MEDS ORDERED: WARFARIN 2.5 MG TABLET PO ONE (14:00)
[2017-05-12] MEDS ORDERED: IOPAMIDOL 100 ML BOTTLE IV ONE (14:02)
--- NOTE | 2017-05-12 15:18 | Cat Scan Report ---
CLINICAL INFORMATION: Left leg pain and erythema. History of lymphoma TECHNIQUE: Axial images of the pelvis. 80 mL intravenous contrast material administered. Scanning was performed in arterial phase. Delayed phase images were not obtained. Sagittally and coronally reformatted images. Oral contrast material was not given. COMPARISON: Previous CT scan dated 05/25/2012 FINDINGS: There are calcifications in the subcutaneous soft tissues anterior to the left hip. Patient apparently underwent previous resection of left inguinal adenopathy. No pathologic inguinal lymph nodes identified presently. There is calcification of the distal abdominal aorta. Mild calcification of the common iliac arteries. The common femoral arteries are densely calcified as are the proximal superficial femoral arteries. There is infiltration of subcutaneous fat in the left inguinal region. No abscess. No discrete mass. No soft tissue gas. There is inflammatory abnormality in the pelvis extending to the left inguinal ring. Patency of the left common femoral vein and external iliac vein is not assessed on this arterial phase study. Left external iliac vein is enlarged but only slightly larger than the right external iliac vein. Patient did undergo previous left lower extremity deep venous ultrasound on 05/10/2017 which is normal. There is an eccentric oval-shaped fat collection in the lower pelvis, anterior to the distal left external iliac artery. This was present previously. There is surrounding inflammatory change. Fat necrosis or epiploic appendagitis are possible. There are multiple sigmoid diverticula and these changes may be due to diverticulitis. There is no discrete diverticular abscess. No free air. Urinary bladder is not distended. Diffuse bladder wall thickening is possible. Pelvis is negative. No fracture. No lytic lesion. Sacrum is negative. IMPRESSION: 1. Localized inflammatory reaction in the left inguinal region as well as the left lower quadrant near the inguinal canal. Small fat density may represent fat necrosis or epiploic appendigitis. Diverticulitis is possible. 2. No intra-abdominal abscess. No pathologic lymphadenopathy Interpreted and Authenticated by: Hilton Holder 05/12/17
[2017-05-12] MEDS ORDERED: LORATADINE 10 MG TABLET PO ONE (15:43)
--- NOTE | 2017-05-12 19:59 | General Surgery Consult Note ---
History of Present Illness Patient information: Note initiated : 05/12/17 at 7:57 pm Service Date, if different from initiated Date: [] Patient: Artie Sterling Jr 87 y/o M admitted on 05/10/17 for L Leg Warmth and Swelling/Cellulitis. Chief Complaint: [] Consult date: 05/12/17 Requesting physician: Shweta Figueroa (Cellulitis LLE , skin rash Left anterior thigh. ) History of present illness: 87 year old male with past history of hematological malignancy treated with left groin surgery and RT in past. Currently admitted to [facility] floor under hospitalist care. Receiving IV antibiotics and responding to conservative medical management. There are NO open skin ulcers or wounds. Skin of left leg is clean and wrinkles well. Scattered folliculitis noted without active inflammation or purulence. Medications and Allergies Home Medications Medication Instructions Recorded Confirmed Type magnesium oxide 400 mg tablet 400 mg PO QDAY tab 02/20/16 05/10/17 History multivitamin tablet 1 tab-cap PO QDAY 02/20/16 05/10/17 History rosuvastatin 10 mg tablet 10 mg PO .COMPLEX #90 tab 08/14/16 05/10/17 Rx furosemide 40 mg tablet 40 mg PO BID #60 tab 08/26/16 05/10/17 Rx verapamil ER 120 mg 24 hr 120 mg PO QDAY #90 cap 09/16/16 05/10/17 Rx capsule,extended release metolazone 2.5 mg tablet 2.5 mg PO QDAY PRN #90 tab 11/11/16 05/10/17 Rx warfarin 5 mg tablet See Dose Instructions PO QDAY #100 04/23/17 05/10/17 Rx tab Custom Shoes 1 each TP DAILY 05/10/17 05/10/17 History Allergies Allergy/AdvReac Type Severity Reaction Status Date / Time No Known Drug Allergies Allergy Unverified 05/10/17 20:17 Exam Temp Pulse Resp BP Pulse Ox 97.5 F 76 20 124/80 95 05/12/17 16:00 05/12/17 03:17 05/12/17 16:00 05/12/17 16:00 05/12/17 16:00 - General physical appearance well developed, well nourished, no distress, no pain - Eyes PERRL, normal ocular movement - ENT normal pinna, normal nares, normal mucosa, no congestion - Head Head exam IM: Present: atraumatic, normal inspection, normocephalic - Neck no masses, no bruits, trachea midline, no venous distension - Cardiovascular Cardiovascular exam IM: Present: normal rate and rhythm - Respiratory normal expansion, normal respiratory effort, clear to auscultation - Abdomen Abdomen: Present: soft, non tender, bowel sounds, surgical scars - Genitourinary Present: normal penis with no external lesions - Integumentary Present: other (Resolving cellulitis LLE. Chronic lymphedema LLE. Pruritus related skin rash anterir left thight without any open wound or active inflammatory findings. Mild pruritus related fungal drmatitis anterior left thigh. SOft trissue lymph edema extends to groin scar tissue. Melvin has had surgery and radiation therapy in remote past. There in NO evidence of acute inflammatory process or skin break dwon at this time. ) - Neurologic Present: normal coordination, normal sensation - Musculoskeletal Present: other (Did NOT check gait, melvin was resting in bed. ) - Psychiatric Present: oriented to time, oriented to person Results - Labs 05/13/17 05:30 05/13/17 05:30 Abnormal lab results 05/12/17 05/12/17 05/12/17 Range/Units 04:34 04:34 04:34 WBC 15.1 H (4.5-11.0) K/mcL RBC 4.06 L (4.50-5.90) M/mcL Hct 39.8 L (41.0-55.0) % Gran % 89.2 H (38.0-78.0) % Lymph % (Auto) 6.8 L (15.5-49.0) % Gran # 13.5 H (1.8-8.0) K/mcL Lymph # (Auto) 1.0 L (1.5-4.8) K/mcL PT 25.5 H (11.9-14.5) sec INR 2.2 H (0.9-1.1) Glucose 108 H (70-105) mg/dL Total Bilirubin 1.2 H (0.0-1.0) mg/dL AST 63 H (0-37) U/l Alkaline Phosphatase 161 H (39-117) U/L Lactate Dehydrogenase 324 H (94-250) U/L Diabetes panel 05/12/17 Range/Units 04:34 Sodium 134 (133-145) mmol/L Potassium 4.1 (3.3-5.1) mmol/L Chloride 97 (96-108) mmol/L Carbon Dioxide 23 (22-30) mmol/L BUN 22 (8-23) mg/dl Creatinine 1.0 (0.7-1.2) mg/dl Glucose 108 H (70-105) mg/dL Calcium 8.8 (8.6-10.4) mg/dl AST 63 H (0-37) U/l ALT 22 (0-40) U/l Alkaline Phosphatase 161 H (39-117) U/L Total Protein 6.3 (5.9-8.4) gm/dL Albumin 3.3 (3.2-5.2) gm/dL Triglycerides 114 (<150) mg/dl Calcium panel 05/12/17 Range/Units 04:34 Calcium 8.8 (8.6-10.4) mg/dl Phosphorus 3.0 (2.7-4.5) mg/dL Albumin 3.3 (3.2-5.2) gm/dL Pituitary panel 05/12/17 Range/Units 04:34 Sodium 134 (133-145) mmol/L Potassium 4.1 (3.3-5.1) mmol/L Chloride 97 (96-108) mmol/L Carbon Dioxide 23 (22-30) mmol/L BUN 22 (8-23) mg/dl Creatinine 1.0 (0.7-1.2) mg/dl Glucose 108 H (70-105) mg/dL Calcium 8.8 (8.6-10.4) mg/dl Adrenal panel 05/12/17 Range/Units 04:34 Sodium 134 (133-145) mmol/L Potassium 4.1 (3.3-5.1) mmol/L Chloride 97 (96-108) mmol/L Carbon Dioxide 23 (22-30) mmol/L BUN 22 (8-23) mg/dl Creatinine 1.0 (0.7-1.2) mg/dl Glucose 108 H (70-105) mg/dL Calcium 8.8 (8.6-10.4) mg/dl Total Bilirubin 1.2 H (0.0-1.0) mg/dL AST 63 H (0-37) U/l ALT 22 (0-40) U/l Alkaline Phosphatase 161 H (39-117) U/L Total Protein 6.3 (5.9-8.4) gm/dL Albumin 3.3 (3.2-5.2) gm/dL All other labs normal. Assessment and Plan (1) Diverticulosis Status: Chronic Priority: Low (2) Cellulitis Status: Acute Priority: Medium Qualifiers: Site of cellulitis: extremity Site of cellulitis of extremity: lower extremity Laterality: left Qualified Code(s): L03.116 - Cellulitis of left lower limb (3) Abnormal CT scan, sigmoid colon I reviewed CT scan of abdomen and pelvis with Dr. Hartley, Radiologist. Patient has NON COMPLICATED diverticulosis of left lower abdomen. NO acute intraabdominal process, lymphadenopathy or abscess. Some thickening of skin and sub cutaneous tissues left LQ and groin. Reactive / post operative and chronic. PLAN; RECOMMEND CONSERVATIVE MANAGEMENT. Head to toe Chlorhexidine bath or sponge scrub under supervision. Bacitracin ointment to skin radh / lesions LEFT leg daily BID . May cover with Kerlix bandage. Will sign off at this time. WIll see again as appropriate. Status: Chronic Priority: Low
[2017-05-12] MEDS: FAMOTIDINE 20 MG TABLET PO SCH (21:17)
[2017-05-12] MEDS: ATORVASTATIN 20 MG TABLET PO SCH (21:17)
[2017-05-13] MEDS: PIPERACILLIN SODIUM/TAZOBACTAM 3.375 GM in DEXTROSE 5% IN WATER 50 ML IV SCH ×4 (05:21→23:49)
[2017-05-13 07:18] LABS: Basophils # (Auto) 0 K/mcL (0.0-0.3); Basophils % (Auto) 0.2 % (0.0-2.0); Eosinophils # (Auto) 0.1 K/mcL (0.0-0.7); Eosinophils % (Auto) 0.3 % (0.0-7.0); Granulocytes % (Auto) 90.4 % (38.0-78.0); Lymphocytes # (Auto) 0.9 K/mcL (1.5-4.8); Mean Cell Volume 97.1 fL (80.0-100.0); Mean Corpuscular HGB Conc 33.8 g/dL (31.0-36.0); Mean Corpuscular Hemoglobin 32.8 pg (26.0-34.0); Monocytes # (Auto) 0.7 K/mcL (0.1-0.9); Monocytes % (Auto) 4.1 % (1.0-12.0); Platelet Count 259 K/mcL (140-440); RBC 3.78 M/mcL (4.50-5.90); Red Cell Distribution Width 14.1 % (11.5-14.5)
[2017-05-13 07:43] LABS: ALT/SGPT 40 U/l (0-40); Albumin 2.9 gm/dL (3.2-5.2); Alkaline Phosphatase 196 U/L (39-117); Bilirubin,Direct 0.5 mg/dL (0.0-0.3); Blood Urea Nitrogen 20 mg/dl (8-23); Gamma Glutamyl Transpeptidase 46 U/L (8-61); Uric Acid 5.3 mg/dL (2.5-8.0)
[2017-05-13] MEDS ORDERED: FUROSEMIDE 100 MG/10 ML VIAL IV ONE (07:48)
[2017-05-13] MEDS: FUROSEMIDE 40 MG TABLET PO SCH ×2 (08:03→20:30)
[2017-05-13] MEDS: MULTIVIT,THER IRON,CA,FA & MIN 1 TABLET PO SCH (09:09)
[2017-05-13] MEDS: VERAPAMIL 120 MG TAB.XL.24H PO SCH (09:09)
[2017-05-13] MEDS: MAGNESIUM OXIDE 400 MG TABLET PO SCH (09:09)
[2017-05-13] MEDS: FAMOTIDINE 20 MG TABLET PO SCH ×2 (09:09→20:30)
[2017-05-13] MEDS: VANCOMYCIN 1,000 MG in 0.9 % SODIUM CHLORIDE 250 ML IV SCH ×2 (09:53→21:42)
--- NOTE | 2017-05-13 10:43 | Internal Med Progress Note ---
Medical - PN: Subj Patient information: Note initiated : 05/13/17 at 10:42 am Patient: Artie Sterling Jr 87 y/o M admitted on 05/10/17 for L Leg Warmth and Swelling/Cellulitis. Interval history: May 10, 2017: History of present illness: Mr. 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 Treatment left him with significant scarring. He also has known peripheral vascular disease, as well as congestive heart failure. He presents today complaining of a 2 day history of worsening swelling and redness of his left lower leg. He is having some pain, mainly with weightbearing. He denies any known injuries or breaks in his skin. He denies fever or chills. ER evaluation showed marked leukocytosis, mild hypotension, tachycardia, tachypnea. Patient is now admitted for further workup and treatment. Otherwise, he denies headaches or dizziness, new eye or ear symptoms, sore throat or cough, chest pain or palpitations, shortness of breath or wheezing, abdominal pain, nausea or vomiting, diarrhea or constipation, dysuria, swollen glands. May 11: Today, the patient says he is feeling okay. He is having fairly minimal pain in his left lower extremity. He has been up walking today, and says it is not terribly uncomfortable. He denies fever or chills, headaches or dizziness, chest pain or palpitations, shortness of breath, abdominal pain, nausea or vomiting, diarrhea or constipation, or dysuria. Our wound care nurse saw him today, and is concerned that his overlapping toes may be rubbing and possibly causing an entry point for bacteria. He says he just saw podiatry about a month ago and they gave him a pad to wear between his toes, which she tries to wear every day. May 12: Today, the patient continues to say that he does not feel very poorly. He denies significant pain in his leg, but nursing is noticed increasing swelling of the left lower extremity up to the thigh, as well as a rash on the thigh. He did have a low-grade fever last night, of 99.9. White blood cell count is a bit higher today, at 15,000. Consult was obtained with Dr. French of wound care, but he is not so concerned. He suggested continue with IV antibiotics and leg elevation. Because of the patient's history of a left groin lymphoma before, CT scan was ordered to assess for any signs of mass or obstruction at the groin level. Otherwise, the patient denies fever chills, chest pain or palpitations, shortness of breath, abdominal pain, nausea or vomiting, diarrhea or constipation, dysuria. -He continues on Coumadin, and denies any signs of bleeding. -He does have chronic A. fib, but denies palpitations or other cardiac symptoms. May 13: The patient continues to deny significant pain. He continues to have significant swelling of his left leg, reaching as high as the left groin. The bright red rash that he presented with in the lower leg seems to be fading some. He still has a different rash on the left upper thigh, although this may be somewhat fainter than yesterday. He denies any itching or drainage from the rash. He otherwise denies fever chills, headaches or dizziness, chest pain or shortness of breath, abdominal pain, nausea or vomiting, diarrhea or constipation or dysuria. He continues to have low-grade fevers of about 99.2. White blood cell count is even higher today, at 18,000. Total bilirubin and AST are borderline elevated. Sodium and potassium are low today. Vancomycin trough is elevated at 17. Blood cultures continue to be negative. No open skin wounds were found. - Constitutional Vitals: Vital Signs Temp Pulse Resp BP Pulse Ox 98.8 F 78 18 107/69 100 05/13/17 08:00 05/13/17 03:41 05/13/17 08:00 05/13/17 08:00 05/13/17 08:00 Period Temp Pulse Resp BP Sys/Howe Pulse Ox Last 24 Hr 97.2 F-99.2 F 59-93 16-30 104-144/65-84 94-100 Intake and Output 05/12/17 05/13/17 05/13/17 21:59 05:59 13:59 Intake Total 570 / 570 150 / 150 360 / 360 Output Total 440 / 440 Balance 570 / 570 150 / 150 -80 / -80 Weight 205 lb Intake & Output: Intake & Output 05/12/17 05/13/17 05/13/17 21:59 05:59 13:59 Intake Total 570 / 570 150 / 150 360 / 360 Output Total 440 / 440 Balance 570 / 570 150 / 150 -80 / -80 Weight 205 lb Intake: IV 50 / 50 50 / 50 Zosyn 3.375 gm In 50 / 50 50 / 50 Dextrose 5% in Water 50 ml @ 100 mls/hr IV Q6H [facility] Rx#:[id number] Oral 520 / 520 100 / 100 360 / 360 Output: Void Amount 440 / 440 Other: Meal Dinner Breakfast Percent of Meal Consumed 100% 100% Feeding Ability Independent Independent # Voids 1 1 # Bowel Movements 1 Intake and output measurements reveal he is about 3 L positive on fluid balance. On exam, he is in no acute distress. He is sitting up in a chair, eating breakfast. Neck is supple without obvious lymphadenopathy or JVD. Cardiac exam shows regular rate and rhythm. Lungs are clear to auscultation. Abdomen is soft and nontender. Right lower extremity appears fairly normal. Left lower extremity has about 3+ edema to above the left knee, and the leg appears at least slightly swollen all the way to the left groin today.. Erythema of the lower leg is somewhat faint and fairly diffuse, and blends somewhat into his dark sweeney. He does have tenderness to palpation, and moderate increased warmth as well. There is also a slightly raised, irregular red rash noticed on both the inner and outer thigh areas. This has a different appearance than the lower leg, and could possibly be an allergic reaction. It does look a little bit fainter than yesterday. Neurologic exam is grossly nonfocal. Skin exam: Continues to show that he is markedly tanned and freckled throughout. Medical - PN: Obj Da - Labs CBC & Chem 7: 05/13/17 05:30 05/13/17 05:30 Labs: Abnormal Lab Results 05/13/17 05/13/17 05/13/17 08:10 05:30 05:30 WBC RBC Hgb Hct Gran % Lymph % (Auto) Gran # Lymph # (Auto) PT 30.8 H INR 2.8 H Sodium 131 L Potassium 3.2 L Chloride 95 L BUN Creatinine Glucose Phosphorus Total Bilirubin 1.4 H Direct Bilirubin 0.5 H AST 84 H Alkaline Phosphatase 196 H Lactate Dehydrogenase Total Protein Albumin 2.9 L Vancomycin Trough 17.6 H 05/13/17 05/12/17 05/12/17 05:30 04:34 04:34 WBC 18.3 H RBC 3.78 L Hgb 12.4 L Hct 36.7 L Gran % 90.4 H Lymph % (Auto) 5.0 L Gran # 16.5 H Lymph # (Auto) 0.9 L PT 25.5 H INR 2.2 H Sodium Potassium Chloride BUN Creatinine Glucose 108 H Phosphorus Total Bilirubin 1.2 H Direct Bilirubin AST 63 H Alkaline Phosphatase 161 H Lactate Dehydrogenase 324 H Total Protein Albumin Vancomycin Trough 05/12/17 05/11/17 05/11/17 04:34 03:38 03:38 WBC 15.1 H RBC 4.06 L Hgb Hct 39.8 L Gran % 89.2 H Lymph % (Auto) 6.8 L Gran # 13.5 H Lymph # (Auto) 1.0 L PT 22.3 H INR 1.9 H Sodium 129 L Potassium Chloride BUN 29 H Creatinine Glucose Phosphorus 2.6 L Total Bilirubin 1.4 H Direct Bilirubin AST Alkaline Phosphatase Lactate Dehydrogenase Total Protein 5.7 L Albumin Vancomycin Trough 05/11/17 05/10/17 03:38 20:09 WBC 14.9 H RBC 3.77 L Hgb 12.4 L Hct 36.7 L Gran % 86.3 H Lymph % (Auto) 8.2 L Gran # 12.9 H Lymph # (Auto) 1.2 L PT INR Sodium 130 L Potassium Chloride 93 L BUN 33 H Creatinine 1.3 H Glucose Phosphorus Total Bilirubin 1.8 H Direct Bilirubin AST Alkaline Phosphatase Lactate Dehydrogenase 307 H Total Protein Albumin Vancomycin Trough May 13: Pro-calcitonin is only slightly elevated at 1.6 May 12: Pelvic CT: Localized inflammatory reaction is seen in the left inguinal region as well as the left lower quadrant near the inguinal canal. Small fat density possibly consistent with fat necrosis. Diverticulitis is possible. Mild calcification of common iliac arteries. Femoral arteries are densely calcified. May 11: Lactic acid is normal at 1.5 Blood cultures are negative so far. May 10: Pro time is 22, INR 1.9 CRP is elevated at 23 April 29: Chest x-ray showed mild cardiomegaly, and probable COPD. Minor bibasilar scarring versus atelectasis. Mild old compression fractures of the mid lower thoracic spine. Chemistries: Sodium 130, chloride 93, potassium 4.2, BUN 33, creatinine 1.3 Total bilirubin 1.8 LDH 307 Pro-calcitonin: Elevated at 2.59 Lactic acid: Normal at 2.0 CBC showed white blood cell count of 17,700. Left lower extremity venous Doppler: Negative for DVT. Meds: Medications Acetaminophen (Tylenol) 650 mg PO Q6HP PRN PRN Reason: PAIN/FEVER > 101 Atorvastatin Calcium (Lipitor) 20 mg PO HS [facility] Last Admin: 05/12/17 21:17 Dose: 20 mg Docusate Sodium (Colace) 100 mg PO BID PRN PRN Reason: Constipation Famotidine (Pepcid) 20 mg PO BID [facility] Last Admin: 05/13/17 09:09 Dose: 20 mg Furosemide (Lasix) 40 mg PO BID [facility] Last Admin: 05/13/17 08:03 Dose: Not Given Piperacillin Sod/Tazobactam (Sod 3.375 gm/ Dextrose) 50 mls @ 100 mls/hr IV Q6H [facility] Last Admin: 05/13/17 05:21 Dose: 100 mls/hr Vancomycin HCl 1,000 mg/ (Sodium Chloride) 250 mls @ 250 mls/hr IV Q12H [facility] Last Admin: 05/13/17 09:53 Dose: 250 mls/hr Iron Carb/Multivit/Help Desk Technician/Folic Acid (Multivitamin W/Minerals) 1 tab PO DAILY [facility] Last Admin: 05/13/17 09:09 Dose: 1 tab Magnesium Hydroxide (Milk Of Magnesia) 30 ml PO DAILYP PRN PRN Reason: Constipation Magnesium Oxide (Magnesium Oxide) 400 mg PO QDAY [facility] Last Admin: 05/13/17 09:09 Dose: 400 mg Morphine Sulfate (Morphine) 2 mg IV Q2HP PRN PRN Reason: Pain Naloxone HCl (Narcan) 0.1 mg IV Q2MIN PRN PRN Reason: Opiate Reversal Ondansetron HCl (Zofran) 4 mg IV Q4HP PRN PRN Reason: Nausea And Vomiting Vancomycin HCl (Vancomycin Per Pharmacy) 1 order IV [facility] Verapamil HCl (Calan Sr) 120 mg PO DAILY [facility] Last Admin: 05/13/17 09:09 Dose: 120 mg Warfarin Sodium (Coumadin Per Pharmacy) 1 order PO UD [facility] Medical - PN: A/P - Time Spent With Patient Total time spent is greater than 50% in coordination of care (as documented) at patient's floor/unit and/or counseling patient: Greater than 35 minutes (1) Atrial fibrillation Status: Chronic Current Visit: Yes (2) Cellulitis Status: Acute Current Visit: Yes (3) Congestive heart failure Problem details: Mild Status: Chronic Current Visit: No - Narrative A/P Narrative: #1. Infectious disease. SIRS syndrome. -Patient presents with signs and symptoms of left leg cellulitis, associated with leukocytosis, hypotension, tachypnea. Vital signs are now stable. However, white blood cell count remains elevated, and his left lower extremity appears overall more swollen than on admission. Additionally he has a (new) rash on his left thigh. -Dr. French feels that the CT scan shows mostly chronic changes, nothing acute -Due to lack of improvement, I changed the Ancef over to vancomycin plus Zosyn.. Continue leg elevation. -IV Lasix was ordered this morning, to try to help with the swelling. -Added Pepcid and loratadine for possible allergic rash on his thigh. Blood cultures pending. -lactic acid was normal. pro-calcitonin was elevated on admission, but is closer to normal today.. -Since I cannot explain the ongoing left leg marked swelling, I asked radiology and Dr. Goldman to review the CAT scan with me. Dr. Goldman suggests that we get a CT scan of the entire left lower extremity, looking for signs of fasciitis. 2. Cardiac. -Chronic atrial fibrillation. Rate controlled. Continue verapamil. -Chronic anticoagulation therapy. INR is therapeutic. Coumadin management per pharmacy. -Hypertension. Patient presented with hypotension. Verapamil has been on hold. We can probably restart at this time. 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 Continue warfarin. Continue to monitor. -History of coronary artery disease. Continue warfarin, verapamil, Crestor. 3. CODE STATUS: Patient thinks she would like to be a full code, but would not like long-term life support. He says his would act as his POA. 4. DVT prophylaxis: Continue warfarin. 5. Health maintenance. -Tdap and Pneumovax appear up-to-date. 6. History of peripheral vascular disease. Continue warfarin. #7. History of lymphoma, with treatment of the left groin. He is at risk for lymphedema as well. Ultrasound of the lower extremity did not show DVT. #8. Pulmonary. -History of obstructive sleep apnea. Continue CPAP. #9. GI. AST and alkaline phosphatase are bit elevated today. Continue to monitor. #10. Renal. Sodium, potassium, chloride are all slightly low today. Replace potassium orally. Monitor labs. Approximately 35 minutes has been spent so far today, reviewing test results, interviewing and examining the patient , reviewing his care with Dr. French, as well as with our team, and Dr. Goldman, and the patient's , and writing orders. Medical - PN: Qual - VTE Deep Vein Thrombosis/Pulmonary Embolism Present on Admission: No
[2017-05-13] MEDS ORDERED: POTASSIUM CHLORIDE 20 MEQ TABLET PO SCH (12:36)
[2017-05-13] MEDS: VANCOMYCIN 1,500 MG in 0.9 % SODIUM CHLORIDE 500 ML IV SCH (12:37)
[2017-05-13] MEDS ORDERED: POTASSIUM CHLORIDE 20 MEQ TABLET PO ONE (12:37)
--- NOTE | 2017-05-13 16:43 | General Surgery Consult Note ---
History of Present Illness Patient information: Note initiated : 05/13/17 at 4:40 pm Service Date, if different from initiated Date: [] Patient: Artie Sterling Jr 87 y/o M admitted on 05/10/17 for L Leg Warmth and Swelling/Cellulitis. Chief Complaint: [] Medications and Allergies Home Medications Medication Instructions Recorded Confirmed Type magnesium oxide 400 mg tablet 400 mg PO QDAY tab 02/20/16 05/10/17 History multivitamin tablet 1 tab-cap PO QDAY 02/20/16 05/10/17 History rosuvastatin 10 mg tablet 10 mg PO .COMPLEX #90 tab 08/14/16 05/10/17 Rx furosemide 40 mg tablet 40 mg PO BID #60 tab 08/26/16 05/10/17 Rx verapamil ER 120 mg 24 hr 120 mg PO QDAY #90 cap 09/16/16 05/10/17 Rx capsule,extended release metolazone 2.5 mg tablet 2.5 mg PO QDAY PRN #90 tab 11/11/16 05/10/17 Rx warfarin 5 mg tablet See Dose Instructions PO QDAY #100 04/23/17 05/10/17 Rx tab Custom Shoes 1 each TP DAILY 05/10/17 05/10/17 History Allergies Allergy/AdvReac Type Severity Reaction Status Date / Time No Known Drug Allergies Allergy Unverified 05/10/17 20:17 Exam Temp Pulse Resp BP Pulse Ox 97.6 F 78 18 105/64 99 05/13/17 12:00 05/13/17 03:41 05/13/17 12:00 05/13/17 12:00 05/13/17 12:00 Results - Labs 05/13/17 05:30 05/13/17 05:30 Abnormal lab results 05/13/17 05/13/17 05/13/17 Range/Units 05:30 05:30 05:30 WBC 18.3 H (4.5-11.0) K/mcL RBC 3.78 L (4.50-5.90) M/mcL Hgb 12.4 L (13.5-16.5) g/dL Hct 36.7 L (41.0-55.0) % Gran % 90.4 H (38.0-78.0) % Lymph % (Auto) 5.0 L (15.5-49.0) % Gran # 16.5 H (1.8-8.0) K/mcL Lymph # (Auto) 0.9 L (1.5-4.8) K/mcL PT 30.8 H (11.9-14.5) sec INR 2.8 H (0.9-1.1) Sodium 131 L (133-145) mmol/L Potassium 3.2 L (3.3-5.1) mmol/L Chloride 95 L (96-108) mmol/L Total Bilirubin 1.4 H (0.0-1.0) mg/dL Direct Bilirubin 0.5 H (0.0-0.3) mg/dL AST 84 H (0-37) U/l Alkaline Phosphatase 196 H (39-117) U/L Albumin 2.9 L (3.2-5.2) gm/dL Vancomycin Trough (5.0-15.0) ug/ml 05/13/17 Range/Units 08:10 WBC (4.5-11.0) K/mcL RBC (4.50-5.90) M/mcL Hgb (13.5-16.5) g/dL Hct (41.0-55.0) % Gran % (38.0-78.0) % Lymph % (Auto) (15.5-49.0) % Gran # (1.8-8.0) K/mcL Lymph # (Auto) (1.5-4.8) K/mcL PT (11.9-14.5) sec INR (0.9-1.1) Sodium (133-145) mmol/L Potassium (3.3-5.1) mmol/L Chloride (96-108) mmol/L Total Bilirubin (0.0-1.0) mg/dL Direct Bilirubin (0.0-0.3) mg/dL AST (0-37) U/l Alkaline Phosphatase (39-117) U/L Albumin (3.2-5.2) gm/dL Vancomycin Trough 17.6 H (5.0-15.0) ug/ml Diabetes panel 05/13/17 Range/Units 05:30 Sodium 131 L (133-145) mmol/L Potassium 3.2 L (3.3-5.1) mmol/L Chloride 95 L (96-108) mmol/L Carbon Dioxide 23 (22-30) mmol/L BUN 20 (8-23) mg/dl Creatinine 1.0 (0.7-1.2) mg/dl Glucose 79 (70-105) mg/dL Calcium 8.6 (8.6-10.4) mg/dl AST 84 H (0-37) U/l ALT 40 (0-40) U/l Alkaline Phosphatase 196 H (39-117) U/L Total Protein 5.9 (5.9-8.4) gm/dL Albumin 2.9 L (3.2-5.2) gm/dL Triglycerides 95 (<150) mg/dl Calcium panel 05/13/17 Range/Units 05:30 Calcium 8.6 (8.6-10.4) mg/dl Phosphorus 2.8 (2.7-4.5) mg/dL Albumin 2.9 L (3.2-5.2) gm/dL Pituitary panel 05/13/17 Range/Units 05:30 Sodium 131 L (133-145) mmol/L Potassium 3.2 L (3.3-5.1) mmol/L Chloride 95 L (96-108) mmol/L Carbon Dioxide 23 (22-30) mmol/L BUN 20 (8-23) mg/dl Creatinine 1.0 (0.7-1.2) mg/dl Glucose 79 (70-105) mg/dL Calcium 8.6 (8.6-10.4) mg/dl Adrenal panel 05/13/17 Range/Units 05:30 Sodium 131 L (133-145) mmol/L Potassium 3.2 L (3.3-5.1) mmol/L Chloride 95 L (96-108) mmol/L Carbon Dioxide 23 (22-30) mmol/L BUN 20 (8-23) mg/dl Creatinine 1.0 (0.7-1.2) mg/dl Glucose 79 (70-105) mg/dL Calcium 8.6 (8.6-10.4) mg/dl Total Bilirubin 1.4 H (0.0-1.0) mg/dL AST 84 H (0-37) U/l ALT 40 (0-40) U/l Alkaline Phosphatase 196 H (39-117) U/L Total Protein 5.9 (5.9-8.4) gm/dL Albumin 2.9 L (3.2-5.2) gm/dL All other labs normal. Assessment and Plan (1) Cellulitis CT angiogram of left lower extremity from groin to ankle to rule out deep fasciitis Present antibiotic therapy should be adequate if he does not have necrotizing fasciitis His response to therapy may be delayed due to previous lymphadenectomy of the left groin Status: Acute Priority: Medium Qualifiers: Site of cellulitis: extremity Site of cellulitis of extremity: lower extremity Laterality: left Qualified Code(s): L03.116 - Cellulitis of left lower limb (2) Lymphangitis, acute, lower leg Status: Acute (3) History of non-Hodgkin's lymphoma Status: Acute
[2017-05-13] MEDS ORDERED: IOPAMIDOL 100 ML BOTTLE IJ ONE (17:13)
[2017-05-13] MEDS: POTASSIUM CHLORIDE 20 MEQ TABLET PO SCH (17:42)
--- NOTE | 2017-05-13 18:39 | Cat Scan Report ---
CLINICAL INFORMATION: Diffuse cellulitis in the left lower extremity TECHNIQUE: Axial images from the pelvis to the left foot. 100 mL nonionic contrast material injected. Sagittally and coronally reformatted images. COMPARISON: Previous CTA and aortogram dated 08/18/2013 FINDINGS: There is diffuse subcutaneous edema which extends caudally from the level of the left hip all the way to the left foot. Edema is worst was sterilely and laterally but becomes circumferential by very knee. There is no discrete soft tissue fluid collection or focal abscess. There is no subcutaneous gas. No focal subcutaneous mass. Muscle bundles within the left lower extremity are normal. There is fluid deep to the subcutaneous fascia but not extending within orbit between muscle bundles. No focal muscular abscess or hematoma. There is extensive calcified plaque in the right common femoral artery, superficial femoral artery, and popliteal artery. Calf vessels are calcified. CT arteriogram was not performed. Femur, tibia, fibula are negative. No osteomyelitis. IMPRESSION: 1. Extensive subcutaneous edema throughout the entire right lower extremity. No focal fluid collection. No soft tissue gas bubbles. Lack of soft tissue gas does not exclude the diagnosis of necrotizing fasciitis 2. No focal abscess. No soft tissue foreign body or gas. 3. Extensive calcified atherosclerotic plaque Interpreted and Authenticated by: Hilton Holder 05/13/17
[2017-05-13] MEDS: ATORVASTATIN 20 MG TABLET PO SCH (20:30)
[2017-05-14] MEDS: PIPERACILLIN SODIUM/TAZOBACTAM 3.375 GM in DEXTROSE 5% IN WATER 50 ML IV SCH ×3 (06:07→17:53)
[2017-05-14 06:20] LABS: Basophils # (Auto) 0 K/mcL (0.0-0.3); Basophils % (Auto) 0 % (0.0-2.0); Eosinophils # (Auto) 0.1 K/mcL (0.0-0.7); Eosinophils % (Auto) 0.9 % (0.0-7.0); Granulocytes % (Auto) 93.2 % (38.0-78.0); Lymphocytes # (Auto) 0.9 K/mcL (1.5-4.8); Lymphocytes % (Auto) 5.1 % (15.5-49.0); Mean Cell Volume 97.6 fL (80.0-100.0); Mean Corpuscular HGB Conc 33.8 g/dL (31.0-36.0); Monocytes # (Auto) 0.1 K/mcL (0.1-0.9); Monocytes % (Auto) 0.8 % (1.0-12.0); Platelet Count 293 K/mcL (140-440); RBC 3.99 M/mcL (4.50-5.90); Red Cell Distribution Width 14.1 % (11.5-14.5)
[2017-05-14 07:21] LABS: ALT/SGPT 60 U/l (0-40); Albumin 3.1 gm/dL (3.2-5.2); Alkaline Phosphatase 256 U/L (39-117); Bilirubin,Direct 0.4 mg/dL (0.0-0.3); Blood Urea Nitrogen 20 mg/dl (8-23); Gamma Glutamyl Transpeptidase 62 U/L (8-61); Magnesium 2.1 mg/dL (1.6-2.5)
[2017-05-14] MEDS: MULTIVIT,THER IRON,CA,FA & MIN 1 TABLET PO SCH (08:11)
[2017-05-14] MEDS: MAGNESIUM OXIDE 400 MG TABLET PO SCH (08:11)
[2017-05-14] MEDS: FAMOTIDINE 20 MG TABLET PO SCH ×2 (08:11→20:50)
[2017-05-14] MEDS: FUROSEMIDE 100 MG/10 ML VIAL IV SCH ×2 (08:11→16:08)
[2017-05-14] MEDS: POTASSIUM CHLORIDE 20 MEQ TABLET PO SCH ×2 (08:11→17:53)
[2017-05-14] MEDS: VERAPAMIL 120 MG TAB.XL.24H PO SCH (08:11)
[2017-05-14] MEDS: VANCOMYCIN 1,000 MG in 0.9 % SODIUM CHLORIDE 250 ML IV SCH (09:28)
--- NOTE | 2017-05-14 11:30 | Internal Med Progress Note ---
Medical - PN: Subj Patient information: Note initiated : 05/14/17 at 11:30 am Patient: Artie Sterling Jr 87 y/o M admitted on 05/10/17 for L Leg Warmth and Swelling/Cellulitis. Interval history: May 10, 2017: History of present illness: Mr. 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 Treatment left him with significant scarring. He also has known peripheral vascular disease, as well as congestive heart failure. He presents today complaining of a 2 day history of worsening swelling and redness of his left lower leg. He is having some pain, mainly with weightbearing. He denies any known injuries or breaks in his skin. He denies fever or chills. ER evaluation showed marked leukocytosis, mild hypotension, tachycardia, tachypnea. Patient is now admitted for further workup and treatment. Otherwise, he denies headaches or dizziness, new eye or ear symptoms, sore throat or cough, chest pain or palpitations, shortness of breath or wheezing, abdominal pain, nausea or vomiting, diarrhea or constipation, dysuria, swollen glands. May 11: Today, the patient says he is feeling okay. He is having fairly minimal pain in his left lower extremity. He has been up walking today, and says it is not terribly uncomfortable. He denies fever or chills, headaches or dizziness, chest pain or palpitations, shortness of breath, abdominal pain, nausea or vomiting, diarrhea or constipation, or dysuria. Our wound care nurse saw him today, and is concerned that his overlapping toes may be rubbing and possibly causing an entry point for bacteria. He says he just saw podiatry about a month ago and they gave him a pad to wear between his toes, which she tries to wear every day. May 12: Today, the patient continues to say that he does not feel very poorly. He denies significant pain in his leg, but nursing is noticed increasing swelling of the left lower extremity up to the thigh, as well as a rash on the thigh. He did have a low-grade fever last night, of 99.9. White blood cell count is a bit higher today, at 15,000. Consult was obtained with Dr. French of wound care, but he is not so concerned. He suggested continue with IV antibiotics and leg elevation. Because of the patient's history of a left groin lymphoma before, CT scan was ordered to assess for any signs of mass or obstruction at the groin level. Otherwise, the patient denies fever chills, chest pain or palpitations, shortness of breath, abdominal pain, nausea or vomiting, diarrhea or constipation, dysuria. -He continues on Coumadin, and denies any signs of bleeding. -He does have chronic A. fib, but denies palpitations or other cardiac symptoms. May 13: The patient continues to deny significant pain. He continues to have significant swelling of his left leg, reaching as high as the left groin. The bright red rash that he presented with in the lower leg seems to be fading some. He still has a different rash on the left upper thigh, although this may be somewhat fainter than yesterday. He denies any itching or drainage from the rash. He otherwise denies fever chills, headaches or dizziness, chest pain or shortness of breath, abdominal pain, nausea or vomiting, diarrhea or constipation or dysuria. He continues to have low-grade fevers of about 99.2. White blood cell count is even higher today, at 18,000. Total bilirubin and AST are borderline elevated. Sodium and potassium are low today. Vancomycin trough is elevated at 17. Blood cultures continue to be negative. No open skin wounds were found. May 14: Today, the patient notes his leg feels quite warm and swollen. It is a little more uncomfortable than it has been. He has been having trouble remembering to elevated above the level of his abdomen. His family was here earlier today, and met with Dr. French, as they have lots of questions about why the leg swelling does not seem to be improving. Dr. Rogers Believes most of the swelling is due to inflammation and lymphedema, and that this will improve over time with leg elevation and diuresis. The patient did tell me today that he actually often does have swelling of the left leg at home, towards the end of the day. It usually resolves by morning. This would go along with his history of previous left groin surgery and cancer treatment. -White blood cell count continues to be elevated, but patient has been afebrile for almost 24 hours now.. -LFTs also continue to creep up. -Vancomycin trough level was high today. Otherwise, he denies fever or chills, chest pain or shortness of breath, abdominal pain, nausea or vomiting or diarrhea. - Constitutional Vitals: Vital Signs Temp Pulse Resp BP Pulse Ox 98.7 F 71 24 H 99/61 95 05/14/17 11:06 05/14/17 04:00 05/14/17 11:06 05/14/17 11:06 05/14/17 11:06 Period Temp Pulse Resp BP Sys/Howe Pulse Ox Last 24 Hr 97.6 F-100.0 F 63-71 18-30 97-113/61-77 95-99 Intake and Output 05/13/17 05/14/17 05/14/17 21:59 05:59 13:59 Intake Total 290 / 290 350 / 350 Output Total 300 / 300 250 / 250 Balance -10 / -10 100 / 100 Weight 206 lb Intake & Output: Intake & Output 05/13/17 05/14/17 05/14/17 21:59 05:59 13:59 Intake Total 290 / 290 350 / 350 Output Total 300 / 300 250 / 250 Balance -10 / -10 100 / 100 Weight 206 lb Intake: IV 50 / 50 50 / 50 Zosyn 3.375 gm In 50 / 50 50 / 50 Dextrose 5% in Water 50 ml @ 100 mls/hr IV Q6H [facility] Rx#:[id number] Oral 240 / 240 300 / 300 Output: Void Amount 300 / 300 250 / 250 Other: Meal Dinner Percent of Meal Consumed 100% Feeding Ability Independent # Voids 1 1 # Bowel Movements 1 1 1 On exam, he is lying in bed, nearly flat, without distress. Neck shows no obvious JVD. Cardiac exam shows slightly irregular rhythm, with normal S1 and S2. Lungs are clear to auscultation. Abdomen is soft and nontender. Right leg continues to look fairly normal. Left lower extremity continues to be swollen all the way up to the groin. He continues to have 3-4+ pitting edema to the knee with less marked edema up to the groin. The lower leg rash is fading into his hand. The upper leg rash, which is different, also seems to be fading somewhat. Neurologic exam is grossly nonfocal. Medical - PN: Obj Da - Labs CBC & Chem 7: 05/14/17 05:15 05/14/17 05:15 Labs: Abnormal Lab Results 05/14/17 05/14/17 05/14/17 08:03 05:15 05:15 WBC RBC Hgb Hct Gran % Lymph % (Auto) [place] % (Auto) Gran # Lymph # (Auto) PT 33.9 H INR 3.2 H Sodium 132 L Potassium Chloride 94 L Glucose Total Bilirubin 1.4 H Direct Bilirubin 0.4 H GGT 62 H AST 119 H ALT 60 H Alkaline Phosphatase 256 H Lactate Dehydrogenase 266 H Albumin 3.1 L Vancomycin Trough 22.3 H* 05/14/17 05/13/17 05/13/17 05:15 08:10 05:30 WBC 16.8 H RBC 3.99 L Hgb 13.2 L Hct 38.9 L Gran % 93.2 H Lymph % (Auto) 5.1 L [place] % (Auto) 0.8 L Gran # 15.7 H Lymph # (Auto) 0.9 L PT 30.8 H INR 2.8 H Sodium Potassium Chloride Glucose Total Bilirubin Direct Bilirubin GGT AST ALT Alkaline Phosphatase Lactate Dehydrogenase Albumin Vancomycin Trough 17.6 H 05/13/17 05/13/17 05/12/17 05:30 05:30 04:34 WBC 18.3 H RBC 3.78 L Hgb 12.4 L Hct 36.7 L Gran % 90.4 H Lymph % (Auto) 5.0 L [place] % (Auto) Gran # 16.5 H Lymph # (Auto) 0.9 L PT 25.5 H INR 2.2 H Sodium 131 L Potassium 3.2 L Chloride 95 L Glucose Total Bilirubin 1.4 H Direct Bilirubin 0.5 H GGT AST 84 H ALT Alkaline Phosphatase 196 H Lactate Dehydrogenase Albumin 2.9 L Vancomycin Trough 05/12/17 05/12/17 04:34 04:34 WBC 15.1 H RBC 4.06 L Hgb Hct 39.8 L Gran % 89.2 H Lymph % (Auto) 6.8 L [place] % (Auto) Gran # 13.5 H Lymph # (Auto) 1.0 L PT INR Sodium Potassium Chloride Glucose 108 H Total Bilirubin 1.2 H Direct Bilirubin GGT AST 63 H ALT Alkaline Phosphatase 161 H Lactate Dehydrogenase 324 H Albumin Vancomycin Trough May 13: Pro-calcitonin is only slightly elevated at 1.[address] shows extensive subcutaneous edema throughout the entire right lower extremity. No gas bubbles are seen. No focal abscess. Extensive calcified atherosclerotic plaque is seen. May 12: Pelvic CT: Localized inflammatory reaction is seen in the left inguinal region as well as the left lower quadrant near the inguinal canal. Small fat density possibly consistent with fat necrosis. Diverticulitis is possible. Mild calcification of common iliac arteries. Femoral arteries are densely calcified. May 11: Lactic acid is normal at 1.5 Blood cultures are negative so far. May 10: Pro time is 22, INR 1.9 CRP is elevated at April 30: Chest x-ray showed mild cardiomegaly, and probable COPD. Minor bibasilar scarring versus atelectasis. Mild old compression fractures of the mid lower thoracic spine. Chemistries: Sodium 130, chloride 93, potassium 4.2, BUN 33, creatinine 1.3 Total bilirubin 1.8 LDH 307 Pro-calcitonin: Elevated at 2.59 Lactic acid: Normal at 2.0 CBC showed white blood cell count of 17,700. Left lower extremity venous Doppler: Negative for DVT. Meds: Medications Acetaminophen (Tylenol) 650 mg PO Q6HP PRN PRN Reason: PAIN/FEVER > 101 Last Admin: 05/13/17 20:30 Dose: 650 mg Atorvastatin Calcium (Lipitor) 20 mg PO HS [facility] Last Admin: 05/13/17 20:30 Dose: 20 mg Docusate Sodium (Colace) 100 mg PO BID PRN PRN Reason: Constipation Famotidine (Pepcid) 20 mg PO BID [facility] Last Admin: 05/14/17 08:11 Dose: 20 mg Furosemide (Lasix) 80 mg IV BIDD [facility] Last Admin: 05/14/17 08:11 Dose: 80 mg Piperacillin Sod/Tazobactam (Sod 3.375 gm/ Dextrose) 50 mls @ 100 mls/hr IV Q6H [facility] Last Admin: 05/14/17 06:07 Dose: 100 mls/hr Iron Carb/Multivit/[place]/Folic Acid (Multivitamin W/Minerals) 1 tab PO DAILY [facility] Last Admin: 05/14/17 08:11 Dose: 1 tab Magnesium Hydroxide (Milk Of Magnesia) 30 ml PO DAILYP PRN PRN Reason: Constipation Magnesium Oxide (Magnesium Oxide) 400 mg PO QDAY [facility] Last Admin: 05/14/17 08:11 Dose: 400 mg Morphine Sulfate (Morphine) 2 mg IV Q2HP PRN PRN Reason: Pain Naloxone HCl (Narcan) 0.1 mg IV Q2MIN PRN PRN Reason: Opiate Reversal Ondansetron HCl (Zofran) 4 mg IV Q4HP PRN PRN Reason: Nausea And Vomiting Potassium Chloride (Kdur) 20 meq PO BIDCC [facility] Last Admin: 05/14/17 08:11 Dose: 20 meq Vancomycin HCl (Vancomycin Per Pharmacy) 1 order IV [facility] [place] Verapamil HCl (Calan Sr) 120 mg PO DAILY [facility] Last Admin: 05/14/17 08:11 Dose: 120 mg Warfarin Sodium (Coumadin Per Pharmacy) 1 order PO [facility] [place] Medical - PN: A/P - Time Spent With Patient Total time spent is greater than 50% in coordination of care (as documented) at patient's floor/unit and/or counseling patient: 25 - 35 minutes (1) Atrial fibrillation Status: Chronic Current Visit: Yes (2) Cellulitis Status: Acute Current Visit: Yes (3) Congestive heart failure Problem details: Mild Status: Chronic Current Visit: No - Narrative A/P Narrative: #1. Infectious disease. SIRS syndrome. -Patient presents with signs and symptoms of left leg cellulitis, associated with leukocytosis, hypotension, tachypnea. Vital signs are now stable. However, white blood cell count remains elevated, and his left lower extremity appears overall more swollen than on admission. Additionally he has a (new) rash on his left thigh. -CT scan does not show obvious fasciitis. Dr. jackson still feels that patient will respond to leg elevation, and possible compression stockings. -Due to lack of improvement, I changed the Ancef over to vancomycin plus Zosyn.. Continue leg elevation. I discussed with the patient in detail today that I want his foot kept above the level of his abdomen, whenever he is lying down. -IV Lasix was ordered this morning, to try to help with the swelling. -Added Pepcid and loratadine for possible allergic rash on his thigh. -Dr. Bass feels we can stop IV antibiotics, but I would like to wait until I see the white blood cell count improving. -Vascular evaluation today did confirm peripheral arterial disease. Dr. Bass recommends follow-up with Dr. Mackenzie as an outpatient. Blood cultures pending. -lactic acid was normal. pro-calcitonin was elevated on admission, but is proved. 2. Cardiac. -Chronic atrial fibrillation. Rate controlled. Continue verapamil. We could consider changing him from a calcium channel rai to a beta-rai, as the beta-rai is less likely to encourage edema. -Chronic anticoagulation therapy. INR is therapeutic. Coumadin management per pharmacy. -Hypertension. Patient presented with hypotension. Patient is back on verapamil. 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 Continue warfarin. Continue to monitor. -History of coronary artery disease. Continue warfarin, verapamil, Crestor. 3. CODE STATUS: Patient thinks she would like to be a full code, but would not like long-term life support. He says his would act as his POA. 4. DVT prophylaxis: Continue warfarin. 5. Health maintenance. -Tdap and Pneumovax appear up-to-date. 6. History of peripheral vascular disease. Continue warfarin. #7. History of lymphoma, with treatment of the left groin. He is at risk for lymphedema as well. Ultrasound of the lower extremity did not show DVT. #8. Pulmonary. -History of obstructive sleep apnea. Continue CPAP. #9. GI. LFTs are continuing to creep up. I suspect he might have some passive liver congestion. Follow as we attempt diuresis. #10. Renal. Sodium, potassium, chloride are all slightly low today. Replace potassium orally. Monitor labs. Approximately 30 minutes has been spent so far today, reviewing test results, interviewing and examining the patient , reviewing his care with Dr. French, as well as with our team, and Dr. Goldman, and writing orders. Medical - PN: Qual - VTE Deep Vein Thrombosis/Pulmonary Embolism Present on Admission: No
--- NOTE | 2017-05-14 13:40 | General Surgery Progress Note ---
Subjective Patient reports: tolerating a regular diet, bowel movement, afebrile, other ( Fluctuating LLE pitting lymphedema especially leg. Elevated WBC while on abx. ) Narrative: Note initiated : 05/14/17 at 1:16 pm Service Date, if different from initiated Date: [] Patient: Artie Sterling Jr 87 y/o M admitted on 05/10/17 for L Leg Warmth and Swelling/Cellulitis. Chief Complaint: [] Objective Temp Pulse Resp BP Pulse Ox 98.7 F 71 24 H 99/61 95 05/14/17 11:06 05/14/17 04:00 05/14/17 11:06 05/14/17 11:06 05/14/17 11:06 Assessment: Resolving csssi LLE. POST radiation changes and lymphedema . Suspect underlying PAD Patient needs vascular evaluation / intervention as out patient with Dr. PRAKASH. Plan: Local skin care. Cleanse with chlorhexidine soap / showers daily. Gomes moisturizers and lit compression THIGH high MABEL HOSE. DON in morning and OFF at night. RECOMMEND: OUT PATIENT evaluation by Dr. PRAKASH for vascular assessment / intervention. I saw patient along with his daughter. and nurse in the room. D/W Dr. Colindres, Hospitalist. - Additional Data Intake & Output - Last 24 hours: Intake & Output 05/12/17 05/13/17 05/14/17 05/15/17 05:59 05:59 05:59 05:59 Intake Total 2165 / 2165 1490 / 1490 1900 / 1900 50 / 50 Output Total 1031 / 1031 1640 / 1640 Balance 1134 / 1134 1490 / 1490 260 / 260 50 / 50 Weight 206 lb 205 lb 206 lb 05/14/17 13:17 AVSS. Chest CTA, ABDOMEN soft, NT BS present. Left Lower extremity soft tissue lymphedema ( Pitting ) stable / improving. NO OPEN skin wounds of LLE. Superficial dermatitis ( Fungal ) left thigh stable. Patient had a Sensi[employer] non-invasive vascular PVR assessment. This is consistent with PAD with decreased segmental perfusion pressures and diminished wave forms. - Labs 05/14/17 05:15 05/14/17 05:15 Diabetes panel 05/14/17 Range/Units 05:15 Sodium 132 L (133-145) mmol/L Potassium 3.6 (3.3-5.1) mmol/L Chloride 94 L (96-108) mmol/L Carbon Dioxide 23 (22-30) mmol/L BUN 20 (8-23) mg/dl Creatinine 1.0 (0.7-1.2) mg/dl Glucose 85 (70-105) mg/dL Calcium 8.8 (8.6-10.4) mg/dl AST 119 H (0-37) U/l ALT 60 H (0-40) U/l Alkaline Phosphatase 256 H (39-117) U/L Total Protein 6.1 (5.9-8.4) gm/dL Albumin 3.1 L (3.2-5.2) gm/dL Triglycerides 122 (<150) mg/dl Calcium panel 05/14/17 Range/Units 05:15 Calcium 8.8 (8.6-10.4) mg/dl Phosphorus 3.0 (2.7-4.5) mg/dL Albumin 3.1 L (3.2-5.2) gm/dL Pituitary panel 05/14/17 Range/Units 05:15 Sodium 132 L (133-145) mmol/L Potassium 3.6 (3.3-5.1) mmol/L Chloride 94 L (96-108) mmol/L Carbon Dioxide 23 (22-30) mmol/L BUN 20 (8-23) mg/dl Creatinine 1.0 (0.7-1.2) mg/dl Glucose 85 (70-105) mg/dL Calcium 8.8 (8.6-10.4) mg/dl Adrenal panel 05/14/17 Range/Units 05:15 Sodium 132 L (133-145) mmol/L Potassium 3.6 (3.3-5.1) mmol/L Chloride 94 L (96-108) mmol/L Carbon Dioxide 23 (22-30) mmol/L BUN 20 (8-23) mg/dl Creatinine 1.0 (0.7-1.2) mg/dl Glucose 85 (70-105) mg/dL Calcium 8.8 (8.6-10.4) mg/dl Total Bilirubin 1.4 H (0.0-1.0) mg/dL AST 119 H (0-37) U/l ALT 60 H (0-40) U/l Alkaline Phosphatase 256 H (39-117) U/L Total Protein 6.1 (5.9-8.4) gm/dL Albumin 3.1 L (3.2-5.2) gm/dL Assessment and Plan (1) Diverticulosis Status: Chronic Current Visit: Yes (2) Cellulitis Status: Acute Current Visit: Yes (3) Abnormal CT scan, sigmoid colon Status: Chronic Current Visit: Yes - Time Spent With Patient Total time spent is greater than 50% in coordination of care (as documented) at patient's floor/unit and/or counseling patient:
[2017-05-14] MEDS: NYSTATIN CRM 1 DOSE TUBE TOPICAL SCH (20:50)
[2017-05-14] MEDS: ATORVASTATIN 20 MG TABLET PO SCH (20:50)
[2017-05-15] MEDS: PIPERACILLIN SODIUM/TAZOBACTAM 3.375 GM in DEXTROSE 5% IN WATER 50 ML IV SCH ×4 (00:04→17:18)
[2017-05-15 06:06] LABS: Basophils # (Auto) 0 K/mcL (0.0-0.3); Basophils % (Auto) 0 % (0.0-2.0); Eosinophils # (Auto) 0.2 K/mcL (0.0-0.7); Eosinophils % (Auto) 1.2 % (0.0-7.0); Granulocytes % (Auto) 85.5 % (38.0-78.0); Lymphocytes % (Auto) 7.7 % (15.5-49.0); Mean Cell Volume 96.8 fL (80.0-100.0); Mean Corpuscular HGB Conc 33.8 g/dL (31.0-36.0); Mean Corpuscular Hemoglobin 32.8 pg (26.0-34.0); Monocytes # (Auto) 0.7 K/mcL (0.1-0.9); Monocytes % (Auto) 5.6 % (1.0-12.0); Platelet Count 358 K/mcL (140-440)
[2017-05-15 06:33] LABS: ALT/SGPT 63 U/l (0-40); Albumin 3.1 gm/dL (3.2-5.2); Albumin/Globulin Ratio 1.1 (1.0-2.3); Alkaline Phosphatase 308 U/L (39-117); Bilirubin,Direct 0.5 mg/dL (0.0-0.3); Blood Urea Nitrogen 23 mg/dl (8-23); Gamma Glutamyl Transpeptidase 77 U/L (8-61); Magnesium 1.9 mg/dL (1.6-2.5); Uric Acid 5.3 mg/dL (2.5-8.0)
[2017-05-15] MEDS: POTASSIUM CHLORIDE 20 MEQ TABLET PO SCH ×2 (08:01→17:16)
[2017-05-15] MEDS: MAGNESIUM OXIDE 400 MG TABLET PO SCH (08:01)
[2017-05-15] MEDS: FUROSEMIDE 100 MG/10 ML VIAL IV SCH ×2 (08:01→17:17)
[2017-05-15] MEDS: MULTIVIT,THER IRON,CA,FA & MIN 1 TABLET PO SCH (08:02)
[2017-05-15] MEDS: NYSTATIN CRM 1 DOSE TUBE TOPICAL SCH ×2 (08:03→22:07)
[2017-05-15] MEDS: FAMOTIDINE 20 MG TABLET PO SCH ×2 (08:04→20:50)
[2017-05-15] MEDS ORDERED: METOPROLOL SUCCINATE 25 MG TAB.XL.24H PO SCH (09:00)
[2017-05-15] MEDS ORDERED: amLODIPine 5 MG TABLET PO SCH (09:00)
--- NOTE | 2017-05-15 10:38 | General Surgery Progress Note ---
Subjective Patient reports: other (OOB and ambulating better. MABEL aivles helps.) Narrative: Note initiated : 05/15/17 at 10:35 am Service Date, if different from initiated Date: [] Patient: Artie Stelring Jr 87 y/o M admitted on 05/10/17 for L Leg Warmth and Swelling/Cellulitis. Chief Complaint: [] Objective Temp Pulse Resp BP Pulse Ox 97.1 F 85 16 112/68 98 05/15/17 07:50 05/15/17 07:50 05/15/17 07:50 05/15/17 07:50 05/15/17 07:50 AVSS. NO changes MARGARET. Reviewed Dr. PRAKASH's notes from December 2016. Extensive atherosclerotic changes LLE. Triphasic wave forms on Doppler studies. Patient ambulates extensively and regularly. Lab results reviewed and discussed with Dr. Colindres. - Additional Data Intake & Output - Last 24 hours: Intake & Output 05/13/17 05/14/17 05/15/17 05/16/17 05:59 05:59 05:59 05:59 Intake Total 1490 / 1490 1900 / 1900 2420 / 2420 350 / 350 Output Total 1640 / 1640 1201 / 1201 200 / 200 Balance 1490 / 1490 260 / 260 1219 / 1219 150 / 150 Weight 205 lb 206 lb 206 lb - Labs 05/15/17 04:03 05/15/17 04:03 Diabetes panel 05/15/17 Range/Units 04:03 Sodium 133 (133-145) mmol/L Potassium 3.3 (3.3-5.1) mmol/L Chloride 94 L (96-108) mmol/L Carbon Dioxide 23 (22-30) mmol/L BUN 23 (8-23) mg/dl Creatinine 1.1 (0.7-1.2) mg/dl Glucose 88 (70-105) mg/dL Calcium 8.7 (8.6-10.4) mg/dl AST 95 H (0-37) U/l ALT 63 H (0-40) U/l Alkaline Phosphatase 308 H (39-117) U/L Total Protein 5.8 L (5.9-8.4) gm/dL Albumin 3.1 L (3.2-5.2) gm/dL Triglycerides 122 (<150) mg/dl Calcium panel 05/15/17 Range/Units 04:03 Calcium 8.7 (8.6-10.4) mg/dl Phosphorus 3.4 (2.7-4.5) mg/dL Albumin 3.1 L (3.2-5.2) gm/dL Pituitary panel 05/15/17 Range/Units 04:03 Sodium 133 (133-145) mmol/L Potassium 3.3 (3.3-5.1) mmol/L Chloride 94 L (96-108) mmol/L Carbon Dioxide 23 (22-30) mmol/L BUN 23 (8-23) mg/dl Creatinine 1.1 (0.7-1.2) mg/dl Glucose 88 (70-105) mg/dL Calcium 8.7 (8.6-10.4) mg/dl Adrenal panel 05/15/17 Range/Units 04:03 Sodium 133 (133-145) mmol/L Potassium 3.3 (3.3-5.1) mmol/L Chloride 94 L (96-108) mmol/L Carbon Dioxide 23 (22-30) mmol/L BUN 23 (8-23) mg/dl Creatinine 1.1 (0.7-1.2) mg/dl Glucose 88 (70-105) mg/dL Calcium 8.7 (8.6-10.4) mg/dl Total Bilirubin 1.4 H (0.0-1.0) mg/dL AST 95 H (0-37) U/l ALT 63 H (0-40) U/l Alkaline Phosphatase 308 H (39-117) U/L Total Protein 5.8 L (5.9-8.4) gm/dL Albumin 3.1 L (3.2-5.2) gm/dL Assessment and Plan (1) Diverticulosis Status: Chronic Current Visit: Yes (2) Cellulitis Problem details: Resolving cellulits and Dermatitis LLE leg and thigh on conservative treatment. Continue same treatment. Status: Acute Current Visit: Yes (3) Abnormal CT scan, sigmoid colon Status: Chronic Current Visit: Yes - Narrative A/P Narrative: #1. Infectious disease. SIRS syndrome. -Patient presents with signs and symptoms of left leg cellulitis, associated with leukocytosis, hypotension, tachypnea. Vital signs are now stable. However, white blood cell count remains elevated, and his left lower extremity appears overall more swollen than on admission. Additionally he has a (new) rash on his left thigh. -CT scan does not show obvious fasciitis. Dr. jackson still feels that patient will respond to leg elevation, and possible compression stockings. -Due to lack of improvement, I changed the Ancef over to vancomycin plus Zosyn.. Continue leg elevation. I discussed with the patient in detail today that I want his foot kept above the level of his abdomen, whenever he is lying down. -IV Lasix was ordered this morning, to try to help with the swelling. -Added Pepcid and loratadine for possible allergic rash on his thigh. -Dr. Bass feels we can stop IV antibiotics, but I would like to wait until I see the white blood cell count improving. -Vascular evaluation today did confirm peripheral arterial disease. Dr. Bass recommends follow-up with Dr. Prakash as an outpatient. Blood cultures pending. -lactic acid was normal. pro-calcitonin was elevated on admission, but is proved. 2. Cardiac. -Chronic atrial fibrillation. Rate controlled. Continue verapamil. We could consider changing him from a calcium channel rai to a beta-rai, as the beta-rai is less likely to encourage edema. -Chronic anticoagulation therapy. INR is therapeutic. Coumadin management per pharmacy. -Hypertension. Patient presented with hypotension. Patient is back on verapamil. 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 Continue warfarin. Continue to monitor. -History of coronary artery disease. Continue warfarin, verapamil, Crestor. 3. CODE STATUS: Patient thinks she would like to be a full code, but would not like long-term life support. He says his would act as his POA. 4. DVT prophylaxis: Continue warfarin. 5. Health maintenance. -Tdap and Pneumovax appear up-to-date. 6. History of peripheral vascular disease. Continue warfarin. #7. History of lymphoma, with treatment of the left groin. He is at risk for lymphedema as well. Ultrasound of the lower extremity did not show DVT. #8. Pulmonary. -History of obstructive sleep apnea. Continue CPAP. #9. GI. LFTs are continuing to creep up. I suspect he might have some passive liver congestion. Follow as we attempt diuresis. #10. Renal. Sodium, potassium, chloride are all slightly low today. Replace potassium orally. Monitor labs. Approximately 30 minutes has been spent so far today, reviewing test results, interviewing and examining the patient , reviewing his care with Dr. French, as well as with our team, and Dr. Goldman, and writing orders. - Time Spent With Patient Total time spent is greater than 50% in coordination of care (as documented) at patient's floor/unit and/or counseling patient:
--- NOTE | 2017-05-15 10:41 | Internal Med Progress Note ---
Medical - PN: Subj Patient information: Note initiated : 05/15/17 at 10:40 am Patient: Artie Sterling Jr 87 y/o M admitted on 05/10/17 for L Leg Warmth and Swelling/Cellulitis. Interval history: May 10, 2017: History of present illness: Mr. 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 Treatment left him with significant scarring. He also has known peripheral vascular disease, as well as congestive heart failure. He presents today complaining of a 2 day history of worsening swelling and redness of his left lower leg. He is having some pain, mainly with weightbearing. He denies any known injuries or breaks in his skin. He denies fever or chills. ER evaluation showed marked leukocytosis, mild hypotension, tachycardia, tachypnea. Patient is now admitted for further workup and treatment. Otherwise, he denies headaches or dizziness, new eye or ear symptoms, sore throat or cough, chest pain or palpitations, shortness of breath or wheezing, abdominal pain, nausea or vomiting, diarrhea or constipation, dysuria, swollen glands. May 11: Today, the patient says he is feeling okay. He is having fairly minimal pain in his left lower extremity. He has been up walking today, and says it is not terribly uncomfortable. He denies fever or chills, headaches or dizziness, chest pain or palpitations, shortness of breath, abdominal pain, nausea or vomiting, diarrhea or constipation, or dysuria. Our wound care nurse saw him today, and is concerned that his overlapping toes may be rubbing and possibly causing an entry point for bacteria. He says he just saw podiatry about a month ago and they gave him a pad to wear between his toes, which she tries to wear every day. May 12: Today, the patient continues to say that he does not feel very poorly. He denies significant pain in his leg, but nursing is noticed increasing swelling of the left lower extremity up to the thigh, as well as a rash on the thigh. He did have a low-grade fever last night, of 99.9. White blood cell count is a bit higher today, at 15,000. Consult was obtained with Dr. French of wound care, but he is not so concerned. He suggested continue with IV antibiotics and leg elevation. Because of the patient's history of a left groin lymphoma before, CT scan was ordered to assess for any signs of mass or obstruction at the groin level. Otherwise, the patient denies fever chills, chest pain or palpitations, shortness of breath, abdominal pain, nausea or vomiting, diarrhea or constipation, dysuria. -He continues on Coumadin, and denies any signs of bleeding. -He does have chronic A. fib, but denies palpitations or other cardiac symptoms. May 13: The patient continues to deny significant pain. He continues to have significant swelling of his left leg, reaching as high as the left groin. The bright red rash that he presented with in the lower leg seems to be fading some. He still has a different rash on the left upper thigh, although this may be somewhat fainter than yesterday. He denies any itching or drainage from the rash. He otherwise denies fever chills, headaches or dizziness, chest pain or shortness of breath, abdominal pain, nausea or vomiting, diarrhea or constipation or dysuria. He continues to have low-grade fevers of about 99.2. White blood cell count is even higher today, at 18,000. Total bilirubin and AST are borderline elevated. Sodium and potassium are low today. Vancomycin trough is elevated at 17. Blood cultures continue to be negative. No open skin wounds were found. May 14: Today, the patient notes his leg feels quite warm and swollen. It is a little more uncomfortable than it has been. He has been having trouble remembering to elevated above the level of his abdomen. His family was here earlier today, and met with Dr. French, as they have lots of questions about why the leg swelling does not seem to be improving. Dr. Rogers Believes most of the swelling is due to inflammation and lymphedema, and that this will improve over time with leg elevation and diuresis. The patient did tell me today that he actually often does have swelling of the left leg at home, towards the end of the day. It usually resolves by morning. This would go along with his history of previous left groin surgery and cancer treatment. -White blood cell count continues to be elevated, but patient has been afebrile for almost 24 hours now.. -LFTs also continue to creep up. -Vancomycin trough level was high today. Otherwise, he denies fever or chills, chest pain or shortness of breath, abdominal pain, nausea or vomiting or diarrhea. May 15: Today, the patient says his leg may feel a little less swollen. He is definitely having increased urine output after this morning's Zaroxolyn plus Lasix. I met with him today, in the presence of his and their friend, in addition to the patient's nurse and Jaye from case management. We reviewed that he has chronic intermittent edema of the left lower extremity, related to previous groin surgery and radiation treatment. This was exacerbated by his acute cellulitis. He has received quite a bit of IV fluids and IV antibiotics while here, and has not kept his urine output up to keep up with this. We also reviewed that I got some notes from Dr. Mackenzie's office, and Dr. Mackenzie thought that since the patient is clinically doing so well, that he did not require further intervention for his peripheral vascular disease. I reviewed with him that his verapamil probably makes him more prone to lower extremity edema. I do think that if we could diurese him, his left leg edema would also improve. Otherwise, he did has no other particular complaints. He denies fever chills chest pain or palpitations shortness of breath, GI or problems. - Constitutional Vitals: Vital Signs Temp Pulse Resp BP Pulse Ox 97.1 F 85 16 112/68 98 05/15/17 07:50 05/15/17 07:50 05/15/17 07:50 05/15/17 07:50 05/15/17 07:50 Period Temp Pulse Resp BP Sys/Howe Pulse Ox Last 24 Hr 97.1 F-98.7 F 72-85 16-24 99-112/61-68 94-98 Intake and Output 05/14/17 05/15/17 05/15/17 21:59 05:59 13:59 Intake Total 1210 / 1210 250 / 250 350 / 350 Output Total 300 / 300 701 / 701 200 / 200 Balance 910 / 910 -451 / -451 150 / 150 Weight 206 lb Intake & Output: Intake & Output 05/14/17 05/15/17 05/15/17 21:59 05:59 13:59 Intake Total 1210 / 1210 250 / 250 350 / 350 Output Total 300 / 300 701 / 701 200 / 200 Balance 910 / 910 -451 / -451 150 / 150 Weight 206 lb Intake: IV 50 / 50 50 / 50 50 / 50 Zosyn 3.375 gm In 50 / 50 50 / 50 50 / 50 Dextrose 5% in Water 50 ml @ 100 mls/hr IV Q6H [facility] Rx#:[id number] Oral 1160 / 1160 200 / 200 300 / 300 Output: Void Amount 300 / 300 700 / 700 200 / 200 # of times incontinent of urine Other: Meal Dinner Percent of Meal Consumed 100% Feeding Ability Independent # Voids 1 # Bowel Movements 1 On exam, he is lying in bed, nearly flat, without distress. Neck shows no obvious JVD. Cardiac exam shows slightly irregular rhythm, with normal S1 and S2. Lungs are clear to auscultation. Abdomen is soft and nontender. Right leg continues to look fairly normal. Left lower extremity continues to be swollen all the way up to the groin, but swelling above the knee is much less today than yesterday. The upper leg rash is also feeding. He continues to have 3-4+ pitting edema to the knee . The lower leg rash is fading into his sweeney Neurologic exam is grossly nonfocal. Medical - PN: Obj Da - Labs CBC & Chem 7: 05/15/17 04:03 05/15/17 04:03 Labs: Abnormal Lab Results 05/15/17 05/15/17 05/15/17 04:03 04:03 04:03 WBC 13.1 H RBC 3.80 L Hgb 12.4 L Hct 36.8 L Gran % 85.5 H Lymph % (Auto) 7.7 L White % (Auto) Gran # 11.2 H Lymph # (Auto) 1.0 L PT 33.4 H INR 3.1 H Sodium Potassium Chloride 94 L Total Bilirubin 1.4 H Direct Bilirubin 0.5 H GGT 77 H AST 95 H ALT 63 H Alkaline Phosphatase 308 H Lactate Dehydrogenase Total Protein 5.8 L Albumin 3.1 L Vancomycin Trough 05/14/17 05/14/17 05/14/17 08:03 05:15 05:15 WBC RBC Hgb Hct Gran % Lymph % (Auto) White % (Auto) Gran # Lymph # (Auto) PT 33.9 H INR 3.2 H Sodium 132 L Potassium Chloride 94 L Total Bilirubin 1.4 H Direct Bilirubin 0.4 H GGT 62 H AST 119 H ALT 60 H Alkaline Phosphatase 256 H Lactate Dehydrogenase 266 H Total Protein Albumin 3.1 L Vancomycin Trough 22.3 H* 05/14/17 05/13/17 05/13/17 05:15 08:10 05:30 WBC 16.8 H RBC 3.99 L Hgb 13.2 L Hct 38.9 L Gran % 93.2 H Lymph % (Auto) 5.1 L White % (Auto) 0.8 L Gran # 15.7 H Lymph # (Auto) 0.9 L PT 30.8 H INR 2.8 H Sodium Potassium Chloride Total Bilirubin Direct Bilirubin GGT AST ALT Alkaline Phosphatase Lactate Dehydrogenase Total Protein Albumin Vancomycin Trough 17.6 H 05/13/17 05/13/17 05:30 05:30 WBC 18.3 H RBC 3.78 L Hgb 12.4 L Hct 36.7 L Gran % 90.4 H Lymph % (Auto) 5.0 L White % (Auto) Gran # 16.5 H Lymph # (Auto) 0.9 L PT INR Sodium 131 L Potassium 3.2 L Chloride 95 L Total Bilirubin 1.4 H Direct Bilirubin 0.5 H GGT AST 84 H ALT Alkaline Phosphatase 196 H Lactate Dehydrogenase Total Protein Albumin 2.9 L Vancomycin Trough May 13: Pro-calcitonin is only slightly elevated at 1.[address] shows extensive subcutaneous edema throughout the entire right lower extremity. No gas bubbles are seen. No focal abscess. Extensive calcified atherosclerotic plaque is seen. May 12: Pelvic CT: Localized inflammatory reaction is seen in the left inguinal region as well as the left lower quadrant near the inguinal canal. Small fat density possibly consistent with fat necrosis. Diverticulitis is possible. Mild calcification of common iliac arteries. Femoral arteries are densely calcified. May 11: Lactic acid is normal at 1.5 Blood cultures are negative so far. May 10: Pro time is 22, INR 1.9 CRP is elevated at 23 April 29: Chest x-ray showed mild cardiomegaly, and probable COPD. Minor bibasilar scarring versus atelectasis. Mild old compression fractures of the mid lower thoracic spine. Chemistries: Sodium 130, chloride 93, potassium 4.2, BUN 33, creatinine 1.3 Total bilirubin 1.8 LDH 307 Pro-calcitonin: Elevated at 2.59 Lactic acid: Normal at 2.0 CBC showed white blood cell count of 17,700. Left lower extremity venous Doppler: Negative for DVT. Meds: Medications Acetaminophen (Tylenol) 650 mg PO Q6HP PRN PRN Reason: PAIN/FEVER > 101 Last Admin: 05/13/17 20:30 Dose: 650 mg Amlodipine Besylate (Norvasc) 2.5 mg PO BID [facility] Last Admin: 05/15/17 09:05 Dose: 2.5 mg Atorvastatin Calcium (Lipitor) 20 mg PO HS [facility] Last Admin: 05/14/17 20:50 Dose: 20 mg Docusate Sodium (Colace) 100 mg PO BID PRN PRN Reason: Constipation Famotidine (Pepcid) 20 mg PO BID [facility] Last Admin: 05/15/17 08:04 Dose: 20 mg Furosemide (Lasix) 80 mg IV BIDD [facility] Last Admin: 05/15/17 08:01 Dose: 80 mg Piperacillin Sod/Tazobactam (Sod 3.375 gm/ Dextrose) 50 mls @ 100 mls/hr IV Q6H [facility] Last Infusion: 05/15/17 09:07 Dose: Infused Vancomycin HCl 1,500 mg/ (Sodium Chloride) 500 mls @ 333.3 mls/hr IV Q24H [facility] Iron Carb/Multivit/Candler/Folic Acid (Multivitamin W/Minerals) 1 tab PO DAILY [facility] Last Admin: 05/15/17 08:02 Dose: 1 tab Magnesium Hydroxide (Milk Of Magnesia) 30 ml PO DAILYP PRN PRN Reason: Constipation Magnesium Oxide (Magnesium Oxide) 400 mg PO QDAY [facility] Last Admin: 05/15/17 08:01 Dose: 400 mg Metolazone (Zaroxolyn) 2.5 mg PO BID@0730,1530 [facility] Metoprolol Succinate (Toprol Xl) 25 mg PO DAILY [facility] Last Admin: 05/15/17 08:02 Dose: 25 mg Morphine Sulfate (Morphine) 2 mg IV Q2HP PRN PRN Reason: Pain Naloxone HCl (Narcan) 0.1 mg IV Q2MIN PRN PRN Reason: Opiate Reversal Nystatin (Nystatin Crm) 1 dose TOPICAL BID [facility] Last Admin: 05/15/17 08:03 Dose: 1 dose Ondansetron HCl (Zofran) 4 mg IV Q4HP PRN PRN Reason: Nausea And Vomiting [facility] Admin: 05/15/17 08:01 Dose: 20 meq Vancomycin HCl (Vancomycin Per Pharmacy) 1 order IV UD SAV Warfarin Sodium (Coumadin Per Pharmacy) 1 order PO UD SAV Warfarin Sodium (Coumadin) 2.5 mg PO ONCE@1400 ONE Stop: 05/15/17 14:01 Medical - PN: A/P - Time Spent With Patient Total time spent is greater than 50% in coordination of care (as documented) at patient's floor/unit and/or counseling patient: Greater than 35 minutes (1) Atrial fibrillation Status: Chronic Current Visit: Yes (2) Cellulitis Problem details: Resolving cellulits and Dermatitis LLE leg and thigh on conservative treatment. Continue same treatment. Status: Acute Current Visit: Yes (3) Congestive heart failure Problem details: Mild Status: Chronic Current Visit: No - Narrative A/P Narrative: #1. Infectious disease. SIRS syndrome. -Patient presents with signs and symptoms of left leg cellulitis, associated with leukocytosis, hypotension, tachypnea. Vital signs are now stable. -Clinically he has been very slow to respond to treatment, with continued leukocytosis and continued massive swelling of his left lower extremity. Workup does show previous injury and scarring to the left groin area, which appears to have caused lymphatic drainage problems. He also has documented peripheral arterial vascular disease. Yesterday, Dr. johan huntley had a supply thigh-high teds hose, and we impressed upon the patient how important leg elevation is. He also has been receiving IV Lasix. Today he seems to have diuresed a bit, and the upper, proximal leg is definitely less swollen and the rash is fading. -CT scan does not show obvious fasciitis. - I changed the Ancef over to vancomycin plus Zosyn. Dr. prado he feels that he probably does not need antibiotics, but I have continued them in view of the elevated white blood cell count. This is improving today, and I expect we will be able to discontinue tomorrow.. Continue leg elevation. -Added Pepcid and loratadine for possible allergic rash on his thigh. -Vascular evaluation did confirm peripheral arterial disease. Dr. Bass had recommended follow-up with Dr. Mackenzie, but apparently Dr. Mackenzie had already seen the patient in December. Workup did confirm atherosclerotic disease, but Dr. Mackenzie notes the patient has excellent triphasic pulses and tolerates daily exercise very well. He did not recommend any further intervention at this time. Blood cultures pending. -lactic acid was normal. pro-calcitonin was elevated on admission, but is improved. 2. Cardiac. -Chronic atrial fibrillation. Rate controlled. -I am changing him from a calcium channel rai to a beta-rai, as the beta -rai is less likely to encourage edema. It is possible that he will need the calcium channel rai to cause peripheral vasodilation, regarding his vascular disease. I may end up using a lower dose calcium channel rai such as Norvasc, in addition to a beta-rai to control his heart rate. -Chronic anticoagulation therapy. INR is therapeutic. Coumadin management per pharmacy. -Hypertension. Patient presented with hypotension. Blood pressures currently look fine on the new medical regimen. 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 Continue warfarin. Continue to monitor. -History of coronary artery disease. Continue warfarin, Crestor. Trial of a beta-rai as well. 3. CODE STATUS: Patient thinks she would like to be a full code, but would not like long-term life support. He says his would act as his POA. 4. DVT prophylaxis: Continue warfarin. 5. Health maintenance. -Tdap and Pneumovax appear up-to-date. 6. History of peripheral vascular disease. Continue warfarin. #7. History of lymphoma, with treatment of the left groin. He is at risk for lymphedema as well. Ultrasound of the lower extremity did not show DVT. #8. Pulmonary. -History of obstructive sleep apnea. Continue CPAP. #9. GI. LFTs are continuing to creep up. I suspect he might have some passive liver congestion. Follow as we attempt diuresis. #10. Renal. Sodium, potassium, chloride are all slightly low today. Continue to replace potassium orally. Monitor labs. #11. Disposition: The patient will return home at discharge, but physical therapy feels that he is a little unsteady on his feet. They have recommended home health PT to assess home safety. He might also need to use a walker for a while after hospital discharge. Approximately 40 minutes has been spent so far today, reviewing test results, interviewing and examining the patient , reviewing his care with Dr. French, as well as with the patient and his family, case management, and writing orders. Medical - PN: Qual - VTE Deep Vein Thrombosis/Pulmonary Embolism Present on Admission: No
--- NOTE | 2017-05-15 10:44 | General Surgery Progress Note ---
Subjective Patient reports: other (Feels well. Ambulating well with MABEL hose thigh high LLE.) Narrative: Note initiated : 05/15/17 at 10:42 am Service Date, if different from initiated Date: [] Patient: Artie Sterling Jr 87 y/o M admitted on 05/10/17 for L Leg Warmth and Swelling/Cellulitis. Chief Complaint: [] Objective Temp Pulse Resp BP Pulse Ox 97.1 F 85 16 112/68 98 05/15/17 07:50 05/15/17 07:50 05/15/17 07:50 05/15/17 07:50 05/15/17 07:50 AVSS. No changes MARGARET. L/E LLE. continuing improvement. Resolving cellulitis and dermatitis. - Additional Data Intake & Output - Last 24 hours: Intake & Output 05/13/17 05/14/17 05/15/17 05/16/17 05:59 05:59 05:59 05:59 Intake Total 1490 / 1490 1900 / 1900 2420 / 2420 350 / 350 Output Total 1640 / 1640 1201 / 1201 200 / 200 Balance 1490 / 1490 260 / 260 1219 / 1219 150 / 150 Weight 205 lb 206 lb 206 lb - Labs 05/15/17 04:03 05/15/17 04:03 Diabetes panel 05/15/17 Range/Units 04:03 Sodium 133 (133-145) mmol/L Potassium 3.3 (3.3-5.1) mmol/L Chloride 94 L (96-108) mmol/L Carbon Dioxide 23 (22-30) mmol/L BUN 23 (8-23) mg/dl Creatinine 1.1 (0.7-1.2) mg/dl Glucose 88 (70-105) mg/dL Calcium 8.7 (8.6-10.4) mg/dl AST 95 H (0-37) U/l ALT 63 H (0-40) U/l Alkaline Phosphatase 308 H (39-117) U/L Total Protein 5.8 L (5.9-8.4) gm/dL Albumin 3.1 L (3.2-5.2) gm/dL Triglycerides 122 (<150) mg/dl Calcium panel 05/15/17 Range/Units 04:03 Calcium 8.7 (8.6-10.4) mg/dl Phosphorus 3.4 (2.7-4.5) mg/dL Albumin 3.1 L (3.2-5.2) gm/dL Pituitary panel 05/15/17 Range/Units 04:03 Sodium 133 (133-145) mmol/L Potassium 3.3 (3.3-5.1) mmol/L Chloride 94 L (96-108) mmol/L Carbon Dioxide 23 (22-30) mmol/L BUN 23 (8-23) mg/dl Creatinine 1.1 (0.7-1.2) mg/dl Glucose 88 (70-105) mg/dL Calcium 8.7 (8.6-10.4) mg/dl Adrenal panel 05/15/17 Range/Units 04:03 Sodium 133 (133-145) mmol/L Potassium 3.3 (3.3-5.1) mmol/L Chloride 94 L (96-108) mmol/L Carbon Dioxide 23 (22-30) mmol/L BUN 23 (8-23) mg/dl Creatinine 1.1 (0.7-1.2) mg/dl Glucose 88 (70-105) mg/dL Calcium 8.7 (8.6-10.4) mg/dl Total Bilirubin 1.4 H (0.0-1.0) mg/dL AST 95 H (0-37) U/l ALT 63 H (0-40) U/l Alkaline Phosphatase 308 H (39-117) U/L Total Protein 5.8 L (5.9-8.4) gm/dL Albumin 3.1 L (3.2-5.2) gm/dL Assessment and Plan (1) Diverticulosis Status: Chronic Current Visit: Yes (2) Cellulitis Problem details: Resolving cellulits and Dermatitis LLE leg and thigh on conservative treatment. Continue same treatment. Status: Acute Current Visit: Yes (3) Abnormal CT scan, sigmoid colon Status: Chronic Current Visit: Yes - Time Spent With Patient Total time spent is greater than 50% in coordination of care (as documented) at patient's floor/unit and/or counseling patient: less than 15 minutes (Progressing well. Continue current treatment.)
[2017-05-15] MEDS: VANCOMYCIN 1,500 MG in 0.9 % SODIUM CHLORIDE 500 ML IV SCH (11:26)
[2017-05-15] MEDS ORDERED: WARFARIN 2.5 MG TABLET PO ONE (14:00)
[2017-05-15] MEDS: METOLAZONE 2.5 MG TABLET PO SCH (17:17)
[2017-05-15] MEDS ORDERED: PIPERACILLIN SODIUM/TAZOBACTAM 3.375 GM VIAL IV ONE (20:04)
[2017-05-15] MEDS: METOPROLOL SUCCINATE 25 MG TAB.XL.24H PO SCH (20:49)
[2017-05-15] MEDS: ATORVASTATIN 20 MG TABLET PO SCH (20:49)
[2017-05-16] MEDS: PIPERACILLIN SODIUM/TAZOBACTAM 3.375 GM in DEXTROSE 5% IN WATER 50 ML IV SCH ×5 (00:30→21:59)
[2017-05-16 05:41] LABS: Basophils # (Auto) 0 K/mcL (0.0-0.3); Basophils % (Auto) 0.2 % (0.0-2.0); Eosinophils # (Auto) 0.1 K/mcL (0.0-0.7); Eosinophils % (Auto) 0.8 % (0.0-7.0); Granulocytes % (Auto) 83.1 % (38.0-78.0); Lymphocytes # (Auto) 1.3 K/mcL (1.5-4.8); Lymphocytes % (Auto) 8.4 % (15.5-49.0); Mean Corpuscular HGB Conc 33.2 g/dL (31.0-36.0); Mean Corpuscular Hemoglobin 32.2 pg (26.0-34.0); Monocytes # (Auto) 1.1 K/mcL (0.1-0.9); Monocytes % (Auto) 7.5 % (1.0-12.0); Platelet Count 477 K/mcL (140-440); RBC 4.41 M/mcL (4.50-5.90)
[2017-05-16 06:02] LABS: ALT/SGPT 88 U/l (0-40); Albumin 3.2 gm/dL (3.2-5.2); Alkaline Phosphatase 426 U/L (39-117); Bilirubin,Direct 0.5 mg/dL (0.0-0.3); Blood Urea Nitrogen 25 mg/dl (8-23); Gamma Glutamyl Transpeptidase 128 U/L (8-61); Uric Acid 5.7 mg/dL (2.5-8.0)
[2017-05-16] MEDS: METOLAZONE 2.5 MG TABLET PO SCH ×2 (07:11→15:00)
[2017-05-16] MEDS ORDERED: amLODIPine 5 MG TABLET PO SCH (09:00)
[2017-05-16] MEDS: FUROSEMIDE 100 MG/10 ML VIAL IV SCH ×2 (10:17→17:51)
[2017-05-16] MEDS: POTASSIUM CHLORIDE 20 MEQ TABLET PO SCH ×3 (10:17→17:17)
[2017-05-16] MEDS: METOPROLOL SUCCINATE 25 MG TAB.XL.24H PO SCH ×2 (10:18→22:00)
[2017-05-16] MEDS: MULTIVIT,THER IRON,CA,FA & MIN 1 TABLET PO SCH (10:18)
[2017-05-16] MEDS: NYSTATIN CRM 1 DOSE TUBE TOPICAL SCH ×2 (10:18→22:37)
[2017-05-16] MEDS: MAGNESIUM OXIDE 400 MG TABLET PO SCH (10:18)
[2017-05-16] MEDS: FAMOTIDINE 20 MG TABLET PO SCH ×2 (10:18→22:00)
[2017-05-16] MEDS: VANCOMYCIN 1,500 MG in 0.9 % SODIUM CHLORIDE 500 ML IV SCH (12:14)
[2017-05-16] MEDS ORDERED: METOLAZONE 2.5 MG TABLET PO ONE (12:51)
[2017-05-16] MEDS ORDERED: BUMETANIDE 0.25 MG/ML VIAL IV ONE (12:51)
[2017-05-16] MEDS ORDERED: WARFARIN 2.5 MG TABLET PO ONE (14:00)
--- NOTE | 2017-05-16 15:40 | Ultrasound Report ---
CLINICAL INFORMATION: Elevated liver function tests. Elevated white blood cell count. Fever. TECHNIQUE: Grayscale and color flow Doppler spectral imaging COMPARISON: CT scans dated 05/12/2017 FINDINGS: Multiple small mobile gallstones. No gallbladder wall thickening. No pericholecystic fluid. No positive sonographic Constantino's sign. No dilated bile ducts. Common bile that measures 5 mm. Negative liver. No focal intrahepatic abnormality. No discrete mass. Normal smooth liver contour. No evidence for cirrhosis. No ascites. Normal hepatopedal portal venous flow. Visualized portions of the pancreas are negative. Right kidney measures 11.9 x 6.5 x 5.8 cm. No solid or cystic mass. No hydronephrosis. Left kidney measures 12.4 x 7.0 x 5.5 cm. There is a 1.7 cm cyst. No solid mass. No hydronephrosis. Spleen is poorly visualized. Negative abdominal aorta IMPRESSION: 1. Cholelithiasis. 2. No gallbladder wall thickening or pericholecystic fluid. No dilated bile ducts 3. No other abnormalities Interpreted and Authenticated by: Hilton Holder 05/16/17
--- NOTE | 2017-05-16 18:16 | Internal Med Progress Note ---
Medical - PN: Subj Patient information: Note initiated : 05/16/17 at 6:16 pm Patient: Artie Sterling Jr 87 y/o M admitted on 05/10/17 for L Leg Warmth and Swelling/Cellulitis. Interval history: May 10, 2017: History of present illness: Mr. 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 Treatment left him with significant scarring. He also has known peripheral vascular disease, as well as congestive heart failure. He presents today complaining of a 2 day history of worsening swelling and redness of his left lower leg. He is having some pain, mainly with weightbearing. He denies any known injuries or breaks in his skin. He denies fever or chills. ER evaluation showed marked leukocytosis, mild hypotension, tachycardia, tachypnea. Patient is now admitted for further workup and treatment. Otherwise, he denies headaches or dizziness, new eye or ear symptoms, sore throat or cough, chest pain or palpitations, shortness of breath or wheezing, abdominal pain, nausea or vomiting, diarrhea or constipation, dysuria, swollen glands. May 11: Today, the patient says he is feeling okay. He is having fairly minimal pain in his left lower extremity. He has been up walking today, and says it is not terribly uncomfortable. He denies fever or chills, headaches or dizziness, chest pain or palpitations, shortness of breath, abdominal pain, nausea or vomiting, diarrhea or constipation, or dysuria. Our wound care nurse saw him today, and is concerned that his overlapping toes may be rubbing and possibly causing an entry point for bacteria. He says he just saw podiatry about a month ago and they gave him a pad to wear between his toes, which she tries to wear every day. May 12: Today, the patient continues to say that he does not feel very poorly. He denies significant pain in his leg, but nursing is noticed increasing swelling of the left lower extremity up to the thigh, as well as a rash on the thigh. He did have a low-grade fever last night, of 99.9. White blood cell count is a bit higher today, at 15,000. Consult was obtained with Dr. French of wound care, but he is not so concerned. He suggested continue with IV antibiotics and leg elevation. Because of the patient's history of a left groin lymphoma before, CT scan was ordered to assess for any signs of mass or obstruction at the groin level. Otherwise, the patient denies fever chills, chest pain or palpitations, shortness of breath, abdominal pain, nausea or vomiting, diarrhea or constipation, dysuria. -He continues on Coumadin, and denies any signs of bleeding. -He does have chronic A. fib, but denies palpitations or other cardiac symptoms. May 13: The patient continues to deny significant pain. He continues to have significant swelling of his left leg, reaching as high as the left groin. The bright red rash that he presented with in the lower leg seems to be fading some. He still has a different rash on the left upper thigh, although this may be somewhat fainter than yesterday. He denies any itching or drainage from the rash. He otherwise denies fever chills, headaches or dizziness, chest pain or shortness of breath, abdominal pain, nausea or vomiting, diarrhea or constipation or dysuria. He continues to have low-grade fevers of about 99.2. White blood cell count is even higher today, at 18,000. Total bilirubin and AST are borderline elevated. Sodium and potassium are low today. Vancomycin trough is elevated at 17. Blood cultures continue to be negative. No open skin wounds were found. May 14: Today, the patient notes his leg feels quite warm and swollen. It is a little more uncomfortable than it has been. He has been having trouble remembering to elevated above the level of his abdomen. His family was here earlier today, and met with Dr. French, as they have lots of questions about why the leg swelling does not seem to be improving. Dr. Rogers Believes most of the swelling is due to inflammation and lymphedema, and that this will improve over time with leg elevation and diuresis. The patient did tell me today that he actually often does have swelling of the left leg at home, towards the end of the day. It usually resolves by morning. This would go along with his history of previous left groin surgery and cancer treatment. -White blood cell count continues to be elevated, but patient has been afebrile for almost 24 hours now.. -LFTs also continue to creep up. -Vancomycin trough level was high today. Otherwise, he denies fever or chills, chest pain or shortness of breath, abdominal pain, nausea or vomiting or diarrhea. May 15: Today, the patient says his leg may feel a little less swollen. He is definitely having increased urine output after this morning's Zaroxolyn plus Lasix. I met with him today, in the presence of his and their friend, in addition to the patient's nurse and Jaye from case management. We reviewed that he has chronic intermittent edema of the left lower extremity, related to previous groin surgery and radiation treatment. This was exacerbated by his acute cellulitis. He has received quite a bit of IV fluids and IV antibiotics while here, and has not kept his urine output up to keep up with this. We also reviewed that I got some notes from Dr. Mackenzie's office, and Dr. Mackenzie thought that since the patient is clinically doing so well, that he did not require further intervention for his peripheral vascular disease. I reviewed with him that his verapamil probably makes him more prone to lower extremity edema. I do think that if we could diurese him, his left leg edema would also improve. Otherwise, he did has no other particular complaints. He denies fever chills chest pain or palpitations shortness of breath, GI or problems. May 16: We had help from over diuresis overnight, but apparently the patient has been drinking lots and lots of fluids, so he keeps replacing what he is losing. I gave him an extra dose of Bumex along with Zaroxolyn today, and he diuresed some but not a great deal. Continues to have significant swelling of his left lower leg, although overall the edema seems better today than yesterday. He continues to have discomfort in the leg when he walks, and is still a little unsteady on his feet. -His liver function enzymes have been creeping up, for uncertain reasons. He also had a low-grade fever of 99.2 around midnight last night. White blood cell count also bumped up a bit today, and is now at 15,000, with an absolute granulocyte count of 12,000. -He is tolerating the thigh-high teds hose, but is not as diligent about staying in bed and keeping his leg elevated, as I would like. He seems to be sitting up for long periods for meals and such. Otherwise, he denies fever or chills, chest pain or shortness of breath, GI or symptoms. - Constitutional Vitals: Vital Signs Temp Pulse Resp BP Pulse Ox 97.2 F 79 16 109/69 96 05/16/17 15:48 05/16/17 04:00 05/16/17 15:48 05/16/17 15:48 05/16/17 15:48 Period Temp Pulse Resp BP Sys/Howe Pulse Ox Last 24 Hr 97.0 F-99.2 F 79-90 16-24 89-129/44-70 92-98 Intake and Output 05/16/17 05/16/17 05/16/17 05:59 13:59 21:59 Intake Total 250 / 250 1150 / 1150 100 / 100 Output Total 950 / 950 1000 / 1000 200 / 200 Balance -700 / -700 150 / 150 -100 / -100 Intake & Output: Intake & Output 05/16/17 05/16/17 05/16/17 05:59 13:59 21:59 Intake Total 250 / 250 1150 / 1150 100 / 100 Output Total 950 / 950 1000 / 1000 200 / 200 Balance -700 / -700 150 / 150 -100 / -100 Intake: IV 50 / 50 50 / 50 100 / 100 Zosyn 3.375 gm In 50 / 50 50 / 50 100 / 100 Dextrose 5% in Water 50 ml @ 100 mls/hr IV Q6H ON LICENSE OF [facility] Rx#:[id number] Oral 200 / 200 1100 / 1100 Output: Void Amount 950 / 950 1000 / 1000 200 / 200 Other: Meal Breakfast Percent of Meal Consumed 100% Feeding Ability Independent # Voids 2 # Bowel Movements 1 On exam, he is sitting up in his chair, eating lunch. Neck shows no obvious JVD. Cardiac exam shows slightly irregular rhythm, with normal S1 and S2. Lungs are clear to auscultation. Abdomen is soft and nontender. Right leg continues to look fairly normal. Left lower extremity continues to be swollen all the way up to the groin, but swelling above the knee is much less today than yesterday. The upper leg rash is also fading. He continues to have 2-3 + pitting edema to the knee . The lower leg rash is fading into his sweeney . Neurologic exam is grossly nonfocal. Medical - PN: Obj Da - Labs CBC & Chem 7: 05/17/17 05:25 05/17/17 05:25 Labs: Abnormal Lab Results 05/16/17 05/16/17 05/16/17 04:48 04:48 04:48 WBC 15.1 H RBC 4.41 L Hgb Hct Plt Count 477 H MPV 7.3 L Gran % 83.1 H Lymph % (Auto) 8.4 L [place] % (Auto) Gran # 12.5 H Lymph # (Auto) 1.3 L [place] # (Auto) 1.1 H PT 30.8 H INR 2.8 H Sodium Potassium 3.1 L Chloride 91 L BUN 25 H Total Bilirubin 1.5 H Direct Bilirubin 0.5 H GGT 128 H AST 127 H ALT 88 H Alkaline Phosphatase 426 H Lactate Dehydrogenase Total Protein Albumin Vancomycin Trough 05/15/17 05/15/17 05/15/17 04:03 04:03 04:03 WBC 13.1 H RBC 3.80 L Hgb 12.4 L Hct 36.8 L Plt Count MPV Gran % 85.5 H Lymph % (Auto) 7.7 L [place] % (Auto) Gran # 11.2 H Lymph # (Auto) 1.0 L [place] # (Auto) PT 33.4 H INR 3.1 H Sodium Potassium Chloride 94 L BUN Total Bilirubin 1.4 H Direct Bilirubin 0.5 H GGT 77 H AST 95 H ALT 63 H Alkaline Phosphatase 308 H Lactate Dehydrogenase Total Protein 5.8 L Albumin 3.1 L Vancomycin Trough 05/14/17 05/14/17 05/14/17 08:03 05:15 05:15 WBC RBC Hgb Hct Plt Count MPV Gran % Lymph % (Auto) [place] % (Auto) Gran # Lymph # (Auto) [place] # (Auto) PT 33.9 H INR 3.2 H Sodium 132 L Potassium Chloride 94 L BUN Total Bilirubin 1.4 H Direct Bilirubin 0.4 H GGT 62 H AST 119 H ALT 60 H Alkaline Phosphatase 256 H Lactate Dehydrogenase 266 H Total Protein Albumin 3.1 L Vancomycin Trough 22.3 H* 05/14/17 05:15 WBC 16.8 H RBC 3.99 L Hgb 13.2 L Hct 38.9 L Plt Count MPV Gran % 93.2 H Lymph % (Auto) 5.1 L [place] % (Auto) 0.8 L Gran # 15.7 H Lymph # (Auto) 0.9 L [place] # (Auto) PT INR Sodium Potassium Chloride BUN Total Bilirubin Direct Bilirubin GGT AST ALT Alkaline Phosphatase Lactate Dehydrogenase Total Protein Albumin Vancomycin Trough May 16: Abdominal ultrasound: Shows multiple small gallstones, without any gallbladder wall thickening or char-cholecystic fluid. Liver appears normal. May 13: Pro-calcitonin is only slightly elevated at 1.[address] shows extensive subcutaneous edema throughout the entire right lower extremity. No gas bubbles are seen. No focal abscess. Extensive calcified atherosclerotic plaque is seen. May 12: Pelvic CT: Localized inflammatory reaction is seen in the left inguinal region as well as the left lower quadrant near the inguinal canal. Small fat density possibly consistent with fat necrosis. Diverticulitis is possible. Mild calcification of common iliac arteries. Femoral arteries are densely calcified. May 11: Lactic acid is normal at 1.5 Blood cultures are negative so far. May 10: Pro time is 22, INR 1.9 CRP is elevated at April 30: Chest x-ray showed mild cardiomegaly, and probable COPD. Minor bibasilar scarring versus atelectasis. Mild old compression fractures of the mid lower thoracic spine. Chemistries: Sodium 130, chloride 93, potassium 4.2, BUN 33, creatinine 1.3 Total bilirubin 1.8 LDH 307 Pro-calcitonin: Elevated at 2.59 Lactic acid: Normal at 2.0 CBC showed white blood cell count of 17,700. Left lower extremity venous Doppler: Negative for DVT. Meds: Medications Acetaminophen (Tylenol) 650 mg PO Q6HP PRN PRN Reason: PAIN/FEVER > 101 Last Admin: 05/13/17 20:30 Dose: 650 mg Atorvastatin Calcium (Lipitor) 20 mg PO HS ON LICENSE OF [facility] Last Admin: 05/15/17 20:49 Dose: 20 mg Docusate Sodium (Colace) 100 mg PO BID PRN PRN Reason: Constipation Famotidine (Pepcid) 20 mg PO BID ON LICENSE OF [facility] Last Admin: 05/16/17 10:18 Dose: 20 mg Furosemide (Lasix) 80 mg IV BIDD ON LICENSE OF [facility] Last Admin: 05/16/17 17:51 Dose: 80 mg Piperacillin Sod/Tazobactam (Sod 3.375 gm/ Dextrose) 50 mls @ 100 mls/hr IV Q6H ON LICENSE OF [facility] Last Infusion: 05/16/17 17:55 Dose: Infused Vancomycin HCl 1,500 mg/ (Sodium Chloride) 500 mls @ 333.3 mls/hr IV Q24H ON LICENSE OF [facility] Last Admin: 05/16/17 12:14 Dose: 333.3 mls/hr Iron Carb/Multivit/Rex/Folic Acid (Multivitamin W/Minerals) 1 tab PO DAILY ON LICENSE OF [facility] Last Admin: 05/16/17 10:18 Dose: 1 tab Magnesium Hydroxide (Milk Of Magnesia) 30 ml PO DAILYP PRN PRN Reason: Constipation Magnesium Oxide (Magnesium Oxide) 400 mg PO QDAY ON LICENSE OF [facility] Last Admin: 05/16/17 10:18 Dose: 400 mg Metolazone (Zaroxolyn) 2.5 mg PO BID@0730,1530 ON LICENSE OF [facility] Last Admin: 05/16/17 15:00 Dose: 2.5 mg Metoprolol Succinate (Toprol Xl) 25 mg PO BID ON LICENSE OF [facility] Last Admin: 05/16/17 10:18 Dose: 25 mg Morphine Sulfate (Morphine) 2 mg IV Q2HP PRN PRN Reason: Pain Naloxone HCl (Narcan) 0.1 mg IV Q2MIN PRN PRN Reason: Opiate Reversal Nystatin (Nystatin Crm) 1 dose TOPICAL BID ON LICENSE OF [facility] Last Admin: 05/16/17 10:18 Dose: 1 dose Ondansetron HCl (Zofran) 4 mg IV Q4HP PRN PRN Reason: Nausea And Vomiting Potassium Chloride (Kdur) 40 meq PO TIDCC ON LICENSE OF [facility] Last Admin: 05/16/17 17:17 Dose: 40 meq Vancomycin HCl (Vancomycin Per Pharmacy) 1 order IV [facility] Warfarin Sodium (Coumadin Per Pharmacy) 1 order PO [facility] Medical - PN: A/P - Time Spent With Patient Total time spent is greater than 50% in coordination of care (as documented) at patient's floor/unit and/or counseling patient: 25 - 35 minutes (1) Atrial fibrillation Status: Chronic Current Visit: Yes (2) Cellulitis Problem details: Resolving cellulits and Dermatitis LLE leg and thigh on conservative treatment. Continue same treatment. Status: Acute Current Visit: Yes (3) Congestive heart failure Problem details: Mild Status: Chronic Current Visit: No - Narrative A/P Narrative: #1. Infectious disease. SIRS syndrome. -Patient presents with signs and symptoms of left leg cellulitis, associated with leukocytosis, hypotension, tachypnea. Vital signs are now stable. -Clinically he has been very slow to respond to treatment, with continued leukocytosis and continued massive swelling of his left lower extremity. Workup does show previous injury and scarring to the left groin area, which appears to have caused lymphatic drainage problems. He also has documented peripheral arterial vascular disease. Dr. manuel huntley had us apply thigh-high teds hose, and we impressed upon the patient how important leg elevation is. He also has been receiving IV Lasix. Today he seems to have diuresed a bit, and the upper, proximal leg is definitely less swollen and the rash is fading. -CT scan does not show obvious fasciitis. - I changed the Ancef over to vancomycin plus Zosyn. Dr. prado he feels that he probably does not need antibiotics, but I have continued them in view of the elevated white blood cell count. This is improving today, and I expect we will be able to discontinue tomorrow.. Continue leg elevation. -Added Pepcid and loratadine for possible allergic rash on his thigh. -Vascular evaluation did confirm peripheral arterial disease. Dr. Bass had recommended follow-up with Dr. Mackenzie, but apparently Dr. Mackenzie had already seen the patient in December. Workup did confirm atherosclerotic disease, but Dr. Mackenzie notes the patient has excellent triphasic pulses and tolerates daily exercise very well. He did not recommend any further intervention at this time. Blood cultures pending. -lactic acid was normal. pro-calcitonin was elevated on admission, but is improved. 2. Cardiac. -Chronic atrial fibrillation. Rate controlled. -He seems to be tolerating switching from verapamil over to metoprolol. I was going to add Norvasc, as he may need to peripheral vasodilation to help with his peripheral vascular disease, but blood pressures been running low enough that I have held that . -Chronic anticoagulation therapy. INR is therapeutic. Coumadin management per pharmacy. -Hypertension. Patient presented with hypotension. Blood pressures currently look fine on the new medical regimen. 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 Continue warfarin. Continue to monitor. -History of coronary artery disease. Continue warfarin, Crestor. Trial of a beta-rai as well. 3. CODE STATUS: Patient thinks he would like to be a full code, but would not like long-term life support. He says his would act as his POA. 4. DVT prophylaxis: Continue warfarin. 5. Health maintenance. -Tdap and Pneumovax appear up-to-date. 6. History of peripheral vascular disease. Continue warfarin. #7. History of lymphoma, with treatment of the left groin. He is at risk for lymphedema as well. Ultrasound of the lower extremity did not show DVT. #8. Pulmonary. -History of obstructive sleep apnea. Continue CPAP. #9. GI. LFTs are continuing to creep up. I suspect he might have some passive liver congestion. Follow as we attempt diuresis. Abdominal ultrasound looked okay today. #10. Renal. Sodium, potassium, chloride are all slightly low today. Continue to replace potassium orally. Monitor labs. #11. Disposition: The patient will return home at discharge, but physical therapy feels that he is a little unsteady on his feet. They have recommended home health PT to assess home safety. He might also need to use a walker for a while after hospital discharge. Approximately 30 minutes has been spent so far today, reviewing test results, interviewing and examining the patient , reviewing his care with Dr. French, as well as with the patient and his family, case management, and writing orders. Medical - PN: Qual - VTE Deep Vein Thrombosis/Pulmonary Embolism Present on Admission: No
[2017-05-16] MEDS: ATORVASTATIN 20 MG TABLET PO SCH (22:00)
[2017-05-17] MEDS: PIPERACILLIN SODIUM/TAZOBACTAM 3.375 GM in DEXTROSE 5% IN WATER 50 ML IV SCH (04:43)
[2017-05-17 07:29] LABS: Basophils # (Auto) 0 K/mcL (0.0-0.3); Basophils % (Auto) 0.2 % (0.0-2.0); Eosinophils # (Auto) 0.2 K/mcL (0.0-0.7); Eosinophils % (Auto) 1.3 % (0.0-7.0); Granulocytes % (Auto) 81.8 % (38.0-78.0); Lymphocytes # (Auto) 1.3 K/mcL (1.5-4.8); Lymphocytes % (Auto) 8.7 % (15.5-49.0); Mean Cell Volume 96.8 fL (80.0-100.0); Mean Corpuscular HGB Conc 33.4 g/dL (31.0-36.0); Mean Corpuscular Hemoglobin 32.4 pg (26.0-34.0); Monocytes # (Auto) 1.2 K/mcL (0.1-0.9); Platelet Count 522 K/mcL (140-440); RBC 4.39 M/mcL (4.50-5.90); Red Cell Distribution Width 13.9 % (11.5-14.5)
[2017-05-17] MEDS: FUROSEMIDE 100 MG/10 ML VIAL IV SCH (07:36)
[2017-05-17] MEDS: POTASSIUM CHLORIDE 20 MEQ TABLET PO SCH ×2 (07:37→12:06)
[2017-05-17] MEDS: METOLAZONE 2.5 MG TABLET PO SCH (07:37)
[2017-05-17 08:22] LABS: ALT/SGPT 80 U/l (0-40); Albumin 2.6 gm/dL (3.2-5.2); Albumin/Globulin Ratio 0.7 (1.0-2.3); Alkaline Phosphatase 450 U/L (39-117); Bilirubin,Direct 0.3 mg/dL (0.0-0.3); Blood Urea Nitrogen 31 mg/dl (8-23); Gamma Glutamyl Transpeptidase 150 U/L (8-61); Magnesium 2.2 mg/dL (1.6-2.5); Uric Acid 6.8 mg/dL (2.5-8.0)
[2017-05-17] MEDS: NYSTATIN CRM 1 DOSE TUBE TOPICAL SCH (09:47)
[2017-05-17] MEDS: MULTIVIT,THER IRON,CA,FA & MIN 1 TABLET PO SCH (09:47)
[2017-05-17] MEDS: METOPROLOL SUCCINATE 25 MG TAB.XL.24H PO SCH (09:47)
[2017-05-17] MEDS: FAMOTIDINE 20 MG TABLET PO SCH (09:47)
[2017-05-17] MEDS: MAGNESIUM OXIDE 400 MG TABLET PO SCH (09:47)
--- NOTE | 2017-05-17 11:12 | Discharge Summary ---
Medical - DS: Prov Patient information: Note initiated : 05/17/17 at 11:12 am Service Date, if different from initiated Date: [] Patient: Artie Sterling Jr 87 y/o M admitted on 05/10/17 for L Leg Warmth and Swelling/Cellulitis. Chief Complaint: [] Date of admission: 05/10/17 19:34 Discharge date: 05/17/17 Primary care physician: Anderson Louise Admitting clinician: Shweta Figueroa Consults: 05/11/17 17:59 Consult to Physician [CONS] Routine Comment: Consulting Provider: Servando French Reason For Exam: Physician to Consult 05/11/17 18:26 Consult to Physician [CONS] Routine Comment: cellulitis Consulting Provider: Servando Frecnh Reason For Exam: Physician to Consult 05/13/17 16:22 Consult to Physician [CONS] Routine Comment: Consulting Provider: Alfonzo Goldman Reason For Exam: Physician to Consult Attending physician on discharge: Shweta Figueroa Medical - DS: Meds - Discharge Medications Prescriptions: Furosemide [Lasix] 80 mg PO BID #1 tablet Metolazone [Zaroxolyn] 2.5 mg PO BIDP PRN #30 tab PRN Reason: edema and weight gain Metoprolol Succinate [Toprol Xl] 25 mg PO BID #60 Potassium Chloride [Kdur] 60 meq PO BIDCC PRN #20 tablet PRN Reason: Edema Active and Home Medications: Discharge medications: Metoprolol XL 25 mg p.o. twice daily, hold second dose for systolic blood pressure consistently less than 100 Lasix, increase to 80 mg p.o. twice daily, as needed persistent leg swelling Metolazone 2.5 mg, to take 20-30 minutes prior to each Lasix dose, as needed persistent leg swelling Potassium chloride 60 mEq, take one with each 80 mg dose of furosemide Tylenol 650 mg every 6 hours as needed Warfarin, as before, follow-up with PCP Rosuvastatin 10 mg daily Multivitamin 1 daily Magnesium oxide 400 mg daily Stop verapamil. For the next few days, he will double his Lasix dose, and take with metolazone and potassium, until leg swelling is at an acceptable level Previous home Medications magnesium oxide 400 mg tablet 400 mg PO QDAY tab 02/20/16 [History Confirmed Last Taken Unknown] multivitamin tablet 1 tab-cap PO QDAY 02/20/16 [History Confirmed 05/10/17 Last Taken Unknown] rosuvastatin 10 mg tablet 10 mg PO .COMPLEX #90 tab 08/14/16 [Rx Confirmed 05/10 Last Taken Unknown] furosemide 40 mg tablet 40 mg PO BID #60 tab 08/26/16 [Rx Confirmed 05/10/17 Last Taken Unknown] verapamil ER 120 mg 24 hr capsule,extended release 120 mg PO QDAY #90 cap [Rx Confirmed 05/10/17 Last Taken Unknown] metolazone 2.5 mg tablet 2.5 mg PO QDAY PRN #90 tab 11/11/16 [Rx Confirmed 05/10 Last Taken Unknown] warfarin 5 mg tablet See Dose Instructions PO QDAY #100 tab 04/23/17 [Rx Confirmed 05/10/17 Last Taken Unknown] Custom Shoes 1 each TP DAILY 05/10/17 [History Confirmed 05/10/17 Last Taken Unknown] Medical - DS: Hosp Hospital course: Mr. Asher Oliveira is a 87 year old M May 10, 2017: History of present illness: Mr. 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 Treatment left him with significant scarring. He also has known peripheral vascular disease, as well as congestive heart failure. He presents today complaining of a 2 day history of worsening swelling and redness of his left lower leg. He is having some pain, mainly with weightbearing. He denies any known injuries or breaks in his skin. He denies fever or chills. ER evaluation showed marked leukocytosis, mild hypotension, tachycardia, tachypnea. Patient is now admitted for further workup and treatment. Otherwise, he denies headaches or dizziness, new eye or ear symptoms, sore throat or cough, chest pain or palpitations, shortness of breath or wheezing, abdominal pain, nausea or vomiting, diarrhea or constipation, dysuria, swollen glands. May 11: Today, the patient says he is feeling okay. He is having fairly minimal pain in his left lower extremity. He has been up walking today, and says it is not terribly uncomfortable. He denies fever or chills, headaches or dizziness, chest pain or palpitations, shortness of breath, abdominal pain, nausea or vomiting, diarrhea or constipation, or dysuria. Our wound care nurse saw him today, and is concerned that his overlapping toes may be rubbing and possibly causing an entry point for bacteria. He says he just saw podiatry about a month ago and they gave him a pad to wear between his toes, which she tries to wear every day. May 12: Today, the patient continues to say that he does not feel very poorly. He denies significant pain in his leg, but nursing is noticed increasing swelling of the left lower extremity up to the thigh, as well as a rash on the thigh. He did have a low-grade fever last night, of 99.9. White blood cell count is a bit higher today, at 15,000. Consult was obtained with Dr. French of wound care, but he is not so concerned. He suggested continue with IV antibiotics and leg elevation. Because of the patient's history of a left groin lymphoma before, CT scan was ordered to assess for any signs of mass or obstruction at the groin level. Otherwise, the patient denies fever chills, chest pain or palpitations, shortness of breath, abdominal pain, nausea or vomiting, diarrhea or constipation, dysuria. -He continues on Coumadin, and denies any signs of bleeding. -He does have chronic A. fib, but denies palpitations or other cardiac symptoms. May 17: Hospital course: -This patient was admitted for presumed left leg cellulitis, and treated with initially Ancef. Over the next couple of days he really did not improve, and his leg swelling got worse and moved from his lower leg all the way up to his groin. Antibiotics were then changed to vancomycin and Zosyn. Not long after that he also developed redness, which was somewhat raised, on his upper thigh. This rash appeared different in character than the lower leg erythema. Dr. French of wound care was consulted. We did a CT scan of the patient's left lower quadrant area, and this did show some inflammation in that area. Dr. johan huntley felt that these were all postsurgical changes from the patient's previous inguinal lymph node surgery and radiation. However, the patient continued to run a fairly high white blood cell count in the 16,000 range, and continued with significant and fairly severe swelling of the entire left lower extremity. He did not seem to respond to leg elevation. We gave him increasingly higher doses of Lasix, and then added metolazone. He actually had a good urine output, but we then discovered that he was drinking just as much fluid as he was putting out. He was then placed on a fluid restriction, and has since diuresed quite a bit. At one point his intake was about 4400 mL positive. Over the last 2 days he has diuresed more than 3 L. I also consulted with Dr. Goldman, who recommended a CT scan of his leg, to rule out fasciitis. No signs of fasciitis were seen. It did show significant vascular disease. We did obtain records from Dr. Mackenzie, who had seen the patient in December. The patient apparently has known vascular disease, but has good pulses and can walk 2 miles a day without pain, so Dr. Mackenzie recommended against any interventions. Today, his left leg is less swollen. He has finally diuresed. He has never had really significant discomfort in the leg, but did have a little more difficulty walking. He thinks everything is improving today. He walked with physical therapy today, but did use a walker, which she does not ordinarily use at home. Physical therapy recommended a home health PT evaluation, since the patient is less steady on his feet than before. Otherwise, the patient denies fever or chills, chest pain or shortness of breath , GI or symptoms. On exam, he is sitting up in his chair. His is with him in the room this morning. Neck shows no obvious JVD. Cardiac exam shows slightly irregular rhythm, with normal S1 and S2. Lungs are clear to auscultation. Abdomen is soft and nontender. Right leg continues to look fairly normal. Left lower extremity continues to be swollen all the way up to the groin, but swelling above the knee is much less today than yesterday. The upper leg rash is also fading. He had let his teds hose wrinkle a little around his knee, and I think it was obstructing circulation. I instructed he and his that this needs to be pulled up all the way and completely smooth, so as not to cause problems. He continues to have 2-3 + pitting edema to the knee . The lower leg rash is fading into his sweeney . Neurologic exam is grossly nonfocal. Assessment and plan: #1. Infectious disease. SIRS syndrome. -Patient presents with signs and symptoms of left leg cellulitis, associated with leukocytosis, hypotension, tachypnea. -Clinically he has been very slow to respond to treatment, with continued leukocytosis and continued massive swelling of his left lower extremity. Workup does show previous injury and scarring to the left groin area, which appears to have caused lymphatic drainage problems. He also has documented peripheral arterial vascular disease. Dr. manuel huntley had us apply thigh-high teds hose, and we impressed upon the patient how important leg elevation is. -We had quite a time trying to get him to diurese. He finally did respond yesterday, after he put him on a fluid restriction, and added Zaroxolyn to 80 mg IV twice daily of Lasix. Fluid balance is practically back to where he came in now. He continues to have fairly significant swelling, but is is definitely improved. He feels well enough to return home. -I have given him instructions to double his Lasix to 80 mg p.o. twice daily, and to take 60 mEq of potassium +2.5 mg of metolazone, with every dose of Lasix. He can continue this regimen until the swelling in his leg is back to normal, or until he is comfortable with the degree of swelling. He can then resume his normal Lasix dose of 40 mg twice daily. At that point, he can stop the metolazone, and cut the potassium dose in half. -Dr. prado he did not feel that he needed to continue antibiotics, as we help the rash will fade as the swelling fades. His white blood cell count has continued high, ranging from 13-15,000. This will need to be followed up with his primary care doctor's office. -CT scan does not show obvious fasciitis. -Vascular evaluation did confirm peripheral arterial disease. Dr. Bass had recommended follow-up with Dr. Mackenzie, but apparently Dr. Mackenzie had already seen the patient in December. Workup did confirm atherosclerotic disease, but Dr. Mackenzie notes the patient has excellent triphasic pulses and tolerates daily exercise very well. He did not recommend any further intervention at this time. Blood cultures are negative. -lactic acid was normal. pro-calcitonin was elevated on admission, but is improved. 2. Cardiac. -Chronic atrial fibrillation. Rate controlled. -He seems to be tolerating switching from verapamil over to metoprolol. I was going to add Norvasc, as he may need to peripheral vasodilation to help with his peripheral vascular disease, but blood pressures been running low enough that I have held that . -I would continue with metoprolol XL 25 mg p.o. twice daily. The second dose could certainly be discontinued if his blood pressure continues to run low. I expect it will rebound once he cuts back on the Lasix. -Chronic anticoagulation therapy. INR is therapeutic. Coumadin management can now return back to his primary care physician. -Hypertension. Patient presented with hypotension. Blood pressures currently look fine on the new medical regimen. 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 Continue warfarin. Continue to monitor. -History of coronary artery disease. Continue warfarin, Crestor. Trial of a beta-rai as well. 3. CODE STATUS: Patient thinks he would like to be a full code, but would not like long-term life support. He says his would act as his POA. 4. DVT prophylaxis: Continue warfarin. 5. Health maintenance. -Tdap and Pneumovax appear up-to-date. 6. History of peripheral vascular disease. Continue warfarin. #7. History of lymphoma, with treatment of the left groin. He is at risk for lymphedema as well. Ultrasound of the lower extremity did not show DVT. #8. Pulmonary. -History of obstructive sleep apnea. Continue CPAP. #9. GI. LFTs have been elevated, for uncertain reasons. I am hopeful these will return back to normal now that he is off all antibiotics. He may have had some passive liver congestion as well. This should be rechecked when he sees his primary care physician this week.. Abdominal ultrasound looked okay . #11. Disposition: The patient will return home at discharge, but physical therapy feels that he is a little unsteady on his feet. They have recommended home health PT to assess home safety. He might also need to use a walker for a while after hospital discharge. Approximately 40 minutes was spent today, interviewing and examining the patient , reviewing test results, reviewing the plan of care with the patient and his , and writing orders. Discharge diagnosis: Left lower extremity cellulitis. Massive lymphedema of the left lower extr Secondary discharge diagnosis: Disruption of blood and lymphatic flow, secondary to previous groin surgery and radiation treatment. Volume overload. A. fib, and anticoagulation therapy. - Time Spent with Patient Total time spent providing and/or coordinating discharge services: Greater than 30 minutes Medical - DS: Exam - Constitutional Vitals: Vital Signs Temp Pulse Resp BP BP Pulse Ox 05/17/17 07:27 98.1 F 18 109/72 99 05/17/17 04:00 97.9 F 77 20 102/70 96 05/17/17 00:00 97.6 F 80 16 94/63 95 05/16/17 20:00 97.6 F 76 18 131/79 93 05/16/17 15:48 97.2 F 16 109/69 96 05/16/17 11:17 97.0 F 20 90/62 97 Intake and Output 05/16/17 05/17/17 05/17/17 21:59 05:59 13:59 Intake Total 100 / 100 100 / 100 240 / 240 Output Total 1000 / 1000 1600 / 1600 1100 / 1100 Balance -900 / -900 -1500 / -1500 -860 / -860 Intake: IV 100 / 100 100 / 100 Zosyn 3.375 gm In 100 / 100 100 / 100 Dextrose 5% in Water 50 ml @ 100 mls/hr IV Q6H [facility] Rx#:[id number] Oral 240 / 240 Output: Void Amount 1000 / 1000 1600 / 1600 1100 / 1100 Other: Meal Breakfast Percent of Meal Consumed 100% # Voids 1 Weight 202 lb Medical - DS: Data Labs on day of discharge: Labs from last 24 hours 05/17/17 05/17/17 05/17/17 10:25 05:25 05:25 WBC RBC Hgb Hct MCV MCH MCHC RDW Plt Count MPV Gran % Lymph % (Auto) [place] % (Auto) Eos % (Auto) Baso % (Auto) Gran # Lymph # (Auto) [place] # (Auto) Eos # (Auto) Baso # (Auto) PT 33.5 H INR 3.1 H Sodium 132 L Potassium 3.6 Chloride 87 L Carbon Dioxide 27 Anion Gap 18.0 H BUN 31 H Creatinine 1.3 H GFR Calculation 49 Glucose 96 Uric Acid 6.8 Calcium 9.1 Phosphorus 4.4 Magnesium 2.2 Total Bilirubin 1.2 H Direct Bilirubin 0.3 GGT 150 H AST 118 H ALT 80 H Alkaline Phosphatase 450 H Lactate Dehydrogenase 318 H Total Protein 6.4 Albumin 2.6 L Globulin 3.8 H Albumin/Globulin Ratio 0.7 L Triglycerides 137 Vancomycin Trough Pending 05/17/17 05:25 WBC 15.1 H RBC 4.39 L Hgb 14.2 Hct 42.5 MCV 96.8 MCH 32.4 MCHC 33.4 RDW 13.9 Plt Count 522 H MPV 7.0 L Gran % 81.8 H Lymph % (Auto) 8.7 L [place] % (Auto) 8.0 Eos % (Auto) 1.3 Baso % (Auto) 0.2 Gran # 12.4 H Lymph # (Auto) 1.3 L [place] # (Auto) 1.2 H Eos # (Auto) 0.2 Baso # (Auto) 0 PT INR Sodium Potassium Chloride Carbon Dioxide Anion Gap BUN Creatinine GFR Calculation Glucose Uric Acid Calcium Phosphorus Magnesium Total Bilirubin Direct Bilirubin GGT AST ALT Alkaline Phosphatase Lactate Dehydrogenase Total Protein Albumin Globulin Albumin/Globulin Ratio Triglycerides Vancomycin Trough May 16: Abdominal ultrasound: Shows multiple small gallstones, without any gallbladder wall thickening or char-cholecystic fluid. Liver appears normal. May 13: Pro-calcitonin is only slightly elevated at 1.[address] shows extensive subcutaneous edema throughout the entire right lower extremity. No gas bubbles are seen. No focal abscess. Extensive calcified atherosclerotic plaque is seen. May 12: Pelvic CT: Localized inflammatory reaction is seen in the left inguinal region as well as the left lower quadrant near the inguinal canal. Small fat density possibly consistent with fat necrosis. Diverticulitis is possible. Mild calcification of common iliac arteries. Femoral arteries are densely calcified. May 11: Lactic acid is normal at 1.5 Blood cultures are negative so far. May 10: Pro time is 22, INR 1.9 CRP is elevated at April 30: Chest x-ray showed mild cardiomegaly, and probable COPD. Minor bibasilar scarring versus atelectasis. Mild old compression fractures of the mid lower thoracic spine. Chemistries: Sodium 130, chloride 93, potassium 4.2, BUN 33, creatinine 1.3 Total bilirubin 1.8 LDH 307 Pro-calcitonin: Elevated at 2.59 Lactic acid: Normal at 2.0 CBC showed white blood cell count of 17,700. Left lower extremity venous Doppler: Negative for DVT. Medical - DS: A/P - Patient/Caregiver Discharge Instructions Activity: as per physical therapy, increase activity as tolerated Diet: Low Sodium (2gm) Additional Instructions: 1. Severe swelling of your left leg. -Please wear your teds hose every day, whenever you are up and out of bed. Please avoid wrinkles and pull them snug. -Whenever you are able, please keep your foot and leg elevated above the level of your abdomen, to help gravity assist your swelling. -For the next few days, until you are swelling is better, we will have you make the following medication changes: -Double your furosemide dose, to 80 mg twice a day. -Take metolazone, 2.5 mg, 15-20 minutes prior to the furosemide doses. -Take potassium, 60 mEq, with every dose of Lasix. -Once her swelling is back to an acceptable level, you can resume your normal doses of furosemide (40 mg twice a day), and go back to using the metolazone just on days when you have increased swelling. -I also stopped your verapamil. Instead, we started metoprolol, 25 mg twice a day. This should cause less swelling of your legs. #2. Coumadin therapy. Resume your normal warfarin/Coumadin dosing. -Please have your primary care physician recheck your Coumadin level this week. 3. You still have an elevated white blood cell count. -Please have your primary care physician recheck your labs when you see him this week. 4. We have kept you in bed for most of the week. Your gait has become a little unsteady and you are not quite as strong as you were before you got here. We will have home health/physical therapy come to your home, to work with you and make sure you are steady on your feet. -You may want to use a walker until you are back to your normal strength. #5. Please have your primary care physician recheck your liver function tests, kidney function, CBC, when you see him this week, as these tests showed various abnormalities during her stay. Prescriptions: Furosemide [Lasix] 80 mg PO BID #1 tablet Metolazone [Zaroxolyn] 2.5 mg PO BIDP PRN #30 tab PRN Reason: edema and weight gain Metoprolol Succinate [Toprol Xl] 25 mg PO BID #60 Potassium Chloride [Kdur] 60 meq PO BIDCC PRN #20 tablet PRN Reason: Edema Other Amb Orders: Physical Therapy at Discharge - General Time Frame: 1 Day, Location: Determined By Patient Walker Location: Determined By Patient - Problem Maintenance (1) Atrial fibrillation Status: Chronic (2) Cellulitis Status: Acute Comment: Resolving cellulits and Dermatitis LLE leg and thigh on conservative treatment. Continue same treatment. Qualifiers: Site of cellulitis: extremity Site of cellulitis of extremity: lower extremity Laterality: left Qualified Code(s): L03.116 - Cellulitis of left lower limb (3) Congestive heart failure Status: Chronic Comment: Mild - Follow up Plan Follow up with: Anderson Louise MD [Primary Care Provider] - Disposition: Home Health Service Prognosis: Fair Rehab Potential: Fair Overall status at discharge: patient is progressing back to baseline Medical - DS: Qual - VTE Deep Vein Thrombosis/Pulmonary Embolism Present on Admission: No
[2017-05-17] MEDS: VANCOMYCIN 1,500 MG in 0.9 % SODIUM CHLORIDE 500 ML IV SCH (12:06)
== END 2017-05-17 14:25 | disposition home health service (06) | DRG 603 ==
LOC: ED 16:13 → ICU 19:34 → MEDSUR 05-11 13:55
PROVIDERS: ADMIT Internal Medicine; ATTEND Internal Medicine